=== PATIENT | female | born 1935 | race Caucasian/White ===

== ENCOUNTER 2021-03-21 14:34 | Inpatient (IN) | payer MEDICARE, OTHER ==
[2021-03-21 15:40] LABS: #Eosinphils 0.1 thou/uL (0.0-0.7); #Lymphocytes 1.6 thou/uL (1.20-3.40); #Monocytes 0.6 thou/uL (0.11-0.59); #Neutrophils 4.7 thou/uL (1.40-6.50); %Basophils 0.2 % (0.0-1.0); %Lymphocytes 23.1 % (21.0-51.0); %Monocytes 8.5 % (0.0-10.0); %Neutrophils 67.2 % (42.0-75.0); Mean Corpuscular Hemoglobin 30.3 pg (27.0-31.0); Mean Corpuscular Volume 94.7 fL (78.0-98.0); Mean Platelet Volume 7.6 fL (7.4-10.4); Platelet Count 291 thou/uL (130-400); RBC Distribution Width 14.8 % (11.5-14.5); Red Blood Cell (RBC) Count 3.95 mill/uL (4.20-5.40); White Blood Cell (WBC) Count 6.9 thou/uL (4.8-10.8)
[2021-03-21 15:59] LABS: ALT (SGPT) 13 U/L (8-55); AST (SGOT) 15 U/L (5-34); Albumin 3.4 g/dL (3.4-4.8); Alkaline Phosphatase 191 U/L (40-110); Anion Gap 17 mmol/L (10-20); BUN (Urea Nitrogen) 17 mg/dL (9.8-20.1); Bilirubin, Total 1.1 mg/dL (0.2-1.2); Calc. Creatinine Clearance 0 mL/min (70-130); Calcium 10.3 mg/dL (7.8-10.44); Carbon Dioxide 28 mmol/L (23-31); Chloride 95 mmol/L (98-107); Glucose 116 mg/dL (83-110); Potassium 3.6 mmol/L (3.5-5.1); Protein, Total 7.4 g/dL (5.8-8.1); Sodium 136 mmol/L (136-145)
[2021-03-21] MEDS ORDERED: Vancomycin 1 GM in Premix Bag 1 BAG IVPB SCH ×2 (17:00→23:00)
[2021-03-21] MEDS ORDERED: Vancomycin 1 GM/200 ML BAG ONE (17:26)
[2021-03-21] MEDS ORDERED: Acetaminophen 325 MG TAB PO PRN (21:58)
[2021-03-21] MEDS ORDERED: Ondansetron PF 4 MG/2 ML Vial IVP PRN (21:58)
[2021-03-21] MEDS ORDERED: Melatonin 3 MG TAB PO PRN (22:02)
[2021-03-21] MEDS ORDERED: Amlodipine 10 MG TAB PO SCH (22:15)
[2021-03-21] MEDS ORDERED: Furosemide 100 MG/10 ML VIAL SLOW IVP SCH (22:15)
[2021-03-21 22:30] VITALS: BMI 28.7
[2021-03-21] MEDS ORDERED: Vancomycin HCl 500 MG in Sodium Chloride 0.9% 100 ML IVPB SCH (23:00)
[2021-03-21] MEDS ORDERED: HOLD VANCOMYCIN FOR LEVEL >20 FS SCH (23:00)
[2021-03-21] MEDS ORDERED: Vancomycin HCl 1.25 GM in Sodium Chloride 0.9% 250 ML 250 ML IVPB SCH (23:00)
[2021-03-21] MEDS ORDERED: Vancomycin HCl 750 MG in Sodium Chloride 0.9% 250 ML 250 ML IVPB SCH (23:00)
[2021-03-21] MEDS: HYDROcodone/Acetaminophen 5/325 mg Tablet PO PRN (23:17)
[2021-03-22 06:20] LABS: Mean Corpuscular HGB CONC 32.1 g/dL (32.0-36.0); Mean Corpuscular Hemoglobin 30.4 pg (27.0-31.0); Mean Corpuscular Volume 94.7 fL (78.0-98.0); Mean Platelet Volume 7.5 fL (7.4-10.4); Platelet Count 271 thou/uL (130-400); RBC Distribution Width 14.8 % (11.5-14.5); White Blood Cell (WBC) Count 6.2 thou/uL (4.8-10.8)
[2021-03-22] MEDS: Levothyroxine Sodium 25 MCG TAB PO SCH (06:31)
[2021-03-22 06:32] LABS: Albumin 2.9 g/dL (3.4-4.8); Anion Gap 15 mmol/L (10-20); BUN (Urea Nitrogen) 22 mg/dL (9.8-20.1); BUN/Creatinine Ratio 4.61; Calc. Creatinine Clearance 11 mL/min (70-130); Calcium 9.3 mg/dL (7.8-10.44); Carbon Dioxide 28 mmol/L (23-31); Chloride 96 mmol/L (98-107); Glucose 98 mg/dL (83-110); Phosphorus 3.7 mg/dL (2.3-4.7); Potassium 3.7 mmol/L (3.5-5.1); Sodium 135 mmol/L (136-145)
[2021-03-22 06:44] LABS: Eosinophils 1 % (0-10); Lymphocytes 23 % (21-51); MDiff Complete? YES; Monocytes 9 % (0-10); Neutrophil 67 % (42-75)
[2021-03-22] MEDS ORDERED: Heparin 5,000 UNITS/ML VIAL SC SCH (09:00)
[2021-03-22] MEDS ORDERED: Levothyroxine Sodium 25 MCG TAB PO SCH (09:00)
[2021-03-22] MEDS: Apixaban 2.5 MG TAB PO SCH ×2 (09:13→20:45)
[2021-03-22] MEDS: Metoprolol Tartrate 25 MG TAB PO SCH ×2 (09:13→20:50)
[2021-03-22] MEDS: Amlodipine 10 MG TAB PO SCH (09:14)
[2021-03-22 12:11] LABS: SARS-CoV-2 PCR by NAA Not Detected (NotDetected)
[2021-03-22] MEDS ORDERED: Lidocaine 1% w/Epinephrine 1:100K 20 ML VIAL FS PRN (12:11)
[2021-03-22] MEDS: HYDROcodone/Acetaminophen 5/325 mg Tablet PO PRN ×2 (12:33→20:45)
[2021-03-22] MEDS ORDERED: Lidocaine-Prilocaine 2.5% Cream 5 GM TUBE TOP SCH (13:00)
[2021-03-23] MEDS: HYDROcodone/Acetaminophen 5/325 mg Tablet PO PRN ×2 (01:38→12:04)
[2021-03-23 05:36] VITALS: TEMP 97.7
[2021-03-23] MEDS: Levothyroxine Sodium 25 MCG TAB PO SCH (05:55)
[2021-03-23 08:16] VITALS: BP 157/79
[2021-03-23 09:29] LABS: Vancomycin, Random 8.8 ug/mL (See Comment)
[2021-03-23] MEDS: Metoprolol Tartrate 25 MG TAB PO SCH (09:30)
[2021-03-23] MEDS: Apixaban 2.5 MG TAB PO SCH (09:30)
[2021-03-23] MEDS: Amlodipine 10 MG TAB PO SCH (09:30)
== END 2021-03-23 14:18 | disposition home or self-care (01) | DRG 602 ==
LOC: ERS 14:34 → T4-B 17:53
PROVIDERS: ADMIT Internal Medicine; ATTEND Internal Medicine
PROC: 0J9M0ZZ Drainage of Left Upper Leg Subcutaneous Tissue and Fascia, Open Approach (ICD-10-PCS; principal; 2021-03-22)
PROC: 5A1D70Z Performance of Urinary Filtration, Intermittent, Less than 6 Hours Per Day (ICD-10-PCS; 2021-03-22)
DX: L02.416 Cutaneous abscess of left lower limb (principal); Z20.822 Contact with and (suspected) exposure to COVID-19; N18.6 End stage renal disease; I12.0 Hypertensive chronic kidney disease with stage 5 chronic kidney disease or end stage renal disease; J96.11 Chronic respiratory failure with hypoxia; R44.3 Hallucinations, unspecified; L03.116 Cellulitis of left lower limb; I16.0 Hypertensive urgency; E87.70 Fluid overload, unspecified; F51.04 Psychophysiologic insomnia; D63.1 Anemia in chronic kidney disease; I48.0 Paroxysmal atrial fibrillation; T40.425A Adverse effect of tramadol, initial encounter; T42.4X5A Adverse effect of benzodiazepines, initial encounter; E03.9 Hypothyroidism, unspecified; Z99.2 Dependence on renal dialysis; Z87.440 Personal history of urinary (tract) infections; Z88.0 Allergy status to penicillin; Z88.8 Allergy status to other drugs, medicaments and biological substances; Z99.81 Dependence on supplemental oxygen; Z87.01 Personal history of pneumonia (recurrent); Z86.16 Personal history of COVID-19
CPT/HCPCS: 36415; 80053; 80069; 80202; 83605; 85007; 85025; 85027; 87040; 87070; 87077; 87086; 87186; 87205; 96365; 96366; J1940; J3370; U0003; U0005

== ENCOUNTER 2021-04-03 13:25 | Emergency (ER) | payer MEDICARE, OTHER ==
[2021-04-03 17:40] LABS: #Eosinphils 0.1 thou/uL (0.0-0.7); #Lymphocytes 1.6 thou/uL (1.20-3.40); #Monocytes 0.5 thou/uL (0.11-0.59); #Neutrophils 4.2 thou/uL (1.40-6.50); %Basophils 0.7 % (0.0-1.0); %Eosinophils 1.1 % (0.0-10.0); %Lymphocytes 24.9 % (21.0-51.0); %Monocytes 7.9 % (0.0-10.0); %Neutrophils 65.5 % (42.0-75.0); Hemoglobin 11.8 g/dL (12.0-16.0); Mean Corpuscular HGB CONC 32.2 g/dL (32.0-36.0); Mean Corpuscular Hemoglobin 30.6 pg (27.0-31.0); Mean Corpuscular Volume 95.1 fL (78.0-98.0); Mean Platelet Volume 7.7 fL (7.4-10.4); Platelet Count 227 thou/uL (130-400); RBC Distribution Width 14.2 % (11.5-14.5); Red Blood Cell (RBC) Count 3.85 mill/uL (4.20-5.40); White Blood Cell (WBC) Count 6.4 thou/uL (4.8-10.8)
[2021-04-03 18:09] LABS: ALT (SGPT) 11 U/L (8-55); AST (SGOT) 17 U/L (5-34); Albumin 3.2 g/dL (3.4-4.8); Alkaline Phosphatase 184 U/L (40-110); Anion Gap 18 mmol/L (10-20); BUN (Urea Nitrogen) 33 mg/dL (9.8-20.1); Bilirubin, Total 0.7 mg/dL (0.2-1.2); Calc. Creatinine Clearance 0 mL/min (70-130); Calcium 9.3 mg/dL (7.8-10.44); Carbon Dioxide 23 mmol/L (23-31); Chloride 96 mmol/L (98-107); Globulin 3.7 g/dL (2.4-3.5); Glucose 147 mg/dL (83-110); Potassium 4.8 mmol/L (3.5-5.1); Protein, Total 6.9 g/dL (5.8-8.1); Sodium 132 mmol/L (136-145)
[2021-04-03] MEDS ORDERED: HYDROcodone/Acetaminophen 5/325 mg Tablet ONE (19:54)
== END 2021-04-03 22:58 ==
LOC: ERS 13:25
DX: I13.0 Hypertensive heart and chronic kidney disease with heart failure and stage 1 through stage 4 chronic kidney disease, or unspecified chronic kidney disease (principal); N18.9 Chronic kidney disease, unspecified; R22.42 Localized swelling, mass and lump, left lower limb; I50.9 Heart failure, unspecified; E78.00 Pure hypercholesterolemia, unspecified; E78.5 Hyperlipidemia, unspecified; Z86.16 Personal history of COVID-19; Z79.01 Long term (current) use of anticoagulants; Z79.899 Other long term (current) drug therapy
CPT/HCPCS: 71045; 80053; 85025; 93005

== ENCOUNTER 2021-04-12 17:59 | Emergency (ER) | payer MEDICARE ==
[2021-04-12] MEDS ORDERED: SUMAtriptan Succinate 6 MG/0.5 ML VIAL ONE (18:48)
[2021-04-12] MEDS ORDERED: Tranexamic Acid 1,000 MG/10 ML VIAL ONE (18:48)
[2021-04-12] MEDS ORDERED: Lidocaine 4% Topical Sol 50 ML BOT ONE (19:27)
[2021-04-12] MEDS ORDERED: Lidocaine 2% PF 5 ML VIAL ONE (19:28)
[2021-04-12] MEDS ORDERED: Lidocaine 1% PF 5 ML VIAL ONE (19:29)
[2021-04-12] MEDS ORDERED: Xylocaine 1% w/ Epi 1:100K 10 ML VIAL IM SCH (19:30)
[2021-04-12] MEDS ORDERED: HYDROcodone/Acetaminophen 5/325 mg Tablet ONE (21:29)
== END 2021-04-12 21:43 | disposition home or self-care (01) ==
LOC: ERS 17:59
DX: T82.898A Other specified complication of vascular prosthetic devices, implants and grafts, initial encounter (principal); I11.0 Hypertensive heart disease with heart failure; I50.9 Heart failure, unspecified; E78.5 Hyperlipidemia, unspecified; E78.00 Pure hypercholesterolemia, unspecified; Z79.01 Long term (current) use of anticoagulants; Z79.899 Other long term (current) drug therapy
CPT/HCPCS: 99284; J2001; J3030

== ENCOUNTER 2021-09-01 10:35 | Inpatient (IN) | payer MEDICARE, OTHER ==
[2021-09-01 11:27] LABS: #Eosinphils 0.1 thou/uL (0.0-0.7); #Lymphocytes 1.4 thou/uL (1.20-3.40); #Monocytes 0.6 thou/uL (0.11-0.59); #Neutrophils 5.8 thou/uL (1.40-6.50); %Basophils 0.4 % (0.0-1.0); %Eosinophils 1.4 % (0.0-10.0); %Lymphocytes 17.6 % (21.0-51.0); %Monocytes 7.1 % (0.0-10.0); %Neutrophils 73.6 % (42.0-75.0); Hemoglobin 9.6 g/dL (12.0-16.0); Mean Corpuscular HGB CONC 31.6 g/dL (32.0-36.0); Mean Corpuscular Hemoglobin 29.5 pg (27.0-31.0); Mean Corpuscular Volume 93.5 fL (78.0-98.0); Mean Platelet Volume 7.5 fL (7.4-10.4); Platelet Count 302 thou/uL (130-400); RBC Distribution Width 16.5 % (11.5-14.5); Red Blood Cell (RBC) Count 3.24 mill/uL (4.20-5.40); White Blood Cell (WBC) Count 7.8 thou/uL (4.8-10.8)
[2021-09-01 11:51] LABS: ALT (SGPT) Less than 7 U/L (8-55); AST (SGOT) 11 U/L (5-34); Albumin 2.9 g/dL (3.4-4.8); Alkaline Phosphatase 226 U/L (40-110); Anion Gap 18 mmol/L (10-20); BUN (Urea Nitrogen) 41 mg/dL (9.8-20.1); Bilirubin, Total 1.1 mg/dL (0.2-1.2); Calc. Creatinine Clearance 0 mL/min (70-130); Calcium 8.8 mg/dL (7.8-10.44); Carbon Dioxide 25 mmol/L (23-31); Chloride 92 mmol/L (98-107); Globulin 3.7 g/dL (2.4-3.5); Glucose 109 mg/dL (83-110); Potassium 5.4 mmol/L (3.5-5.1); Protein, Total 6.6 g/dL (5.8-8.1); Sodium 130 mmol/L (136-145)
[2021-09-01] MEDS ORDERED: traMADol HCl 50 MG TAB ONE (13:18)
[2021-09-01 15:21] LABS: SARS-CoV-2 NAA Rapid Test Not Detected (NotDetected)
[2021-09-01] MEDS ORDERED: Ondansetron ODT 4 MG TAB PO PRN (15:30)
[2021-09-01] MEDS ORDERED: Senokot S 8.6-50 MG TAB PO PRN (15:30)
[2021-09-01] MEDS ORDERED: Bisacodyl 5 MG TAB PO PRN (15:30)
[2021-09-01] MEDS ORDERED: Acetaminophen 325 MG TAB PO PRN (15:30)
[2021-09-01] MEDS ORDERED: Ondansetron PF 4 MG/2 ML Vial IVP PRN (15:30)
[2021-09-01] MEDS ORDERED: Calcium Carbonate 500 MG ChewTAB PO PRN (15:30)
[2021-09-01] MEDS ORDERED: Bisacodyl 10 MG SUPP PR PRN (15:30)
[2021-09-01] MEDS ORDERED: hydrALAZINE 25 MG TAB PO PRN (18:13)
[2021-09-01 18:21] VITALS: BMI 27.8
[2021-09-01] MEDS ORDERED: ceFAZolin (BATCH) 2 GM in Premix Bag 1 BAG IVPB SCH (18:45)
[2021-09-01 19:43] LABS: Hemoglobin A1c 4.9 % (4.0-6.0)
[2021-09-01] MEDS: guaiFENesin ER 600 MG TAB PO SCH (20:59)
[2021-09-02] MEDS: HYDROcodone/Acetaminophen 5/325 mg Tablet PO PRN (03:30)
[2021-09-02] MEDS: hydrOXYzine 25 MG TAB PO PRN (03:52)
[2021-09-02 05:14] LABS: #Eosinphils 0.2 thou/uL (0.0-0.7); #Lymphocytes 1.3 thou/uL (1.20-3.40); #Monocytes 0.7 thou/uL (0.11-0.59); #Neutrophils 5.4 thou/uL (1.40-6.50); %Basophils 0.4 % (0.0-1.0); %Eosinophils 2.4 % (0.0-10.0); %Lymphocytes 17.3 % (21.0-51.0); %Monocytes 8.6 % (0.0-10.0); %Neutrophils 71.4 % (42.0-75.0); Hemoglobin 8.5 g/dL (12.0-16.0); Mean Corpuscular HGB CONC 32.5 g/dL (32.0-36.0); Mean Corpuscular Hemoglobin 30.3 pg (27.0-31.0); Mean Corpuscular Volume 93.3 fL (78.0-98.0); Mean Platelet Volume 7.7 fL (7.4-10.4); Platelet Count 313 thou/uL (130-400); RBC Distribution Width 16.5 % (11.5-14.5); Red Blood Cell (RBC) Count 2.79 mill/uL (4.20-5.40); White Blood Cell (WBC) Count 7.6 thou/uL (4.8-10.8)
[2021-09-02 05:19] LABS: INR-International Normal Ratio 1.2
[2021-09-02 05:20] LABS: PTT 47.2 sec (22.9-36.1)
[2021-09-02 05:39] LABS: ALT (SGPT) Less than 7 U/L (8-55); AST (SGOT) 9 U/L (5-34); Albumin 2.5 g/dL (3.4-4.8); Alkaline Phosphatase 189 U/L (40-110); Anion Gap 18 mmol/L (10-20); BUN (Urea Nitrogen) 48 mg/dL (9.8-20.1); Bilirubin, Direct 0.6 mg/dL (0.1-0.3); Calc. Creatinine Clearance 7 mL/min (70-130); Calcium 8.2 mg/dL (7.8-10.44); Carbon Dioxide 26 mmol/L (23-31); Cardiac Risk 2.3 (Less than 4.5); Chloride 92 mmol/L (98-107); Cholesterol 104 mg/dl (< 200 Desired); Glucose 86 mg/dL (83-110); HDL Cholesterol 46 mg/dL (>60 Neg Risk); LDL Cholesterol, Calculated 44 mg/dL; Protein, Total 5.8 g/dL (5.8-8.1); Sodium 131 mmol/L (136-145); Triglycerides 70 mg/dL (Less than 150)
[2021-09-02] MEDS ORDERED: traZODone HCl 50 MG TAB PO PRN (08:15)
[2021-09-02] MEDS ORDERED: Metoprolol Tartrate 25 MG TAB PO SCH (08:15)
[2021-09-02] MEDS ORDERED: ALPRAZolam 0.25 MG TAB PO PRN ×2 (08:15→08:20)
[2021-09-02] MEDS ORDERED: Heparin 10,000 UNITS/ 10 ML VIAL ONE ×2 (08:50→13:33)
[2021-09-02] MEDS ORDERED: Apixaban 2.5 MG TAB PO SCH (09:00)
[2021-09-02] MEDS ORDERED: Calcitonin,Synthetic 200 UNITS/ML MDV SC SCH ×2 (09:00)
[2021-09-02] MEDS ORDERED: Non-Formulary Item 1 EACH (Ferrous Sulfate [Ferrous Sulfate] 325 MG Tab) PO SCH (09:00)
[2021-09-02] MEDS ORDERED: Iopamidol 300 61% 100 ML VIAL FS ONE (09:11)
[2021-09-02] MEDS ORDERED: Calcitonin,Salmon,Synthetic 200 Units 3.7 ML PUMP EA NARE SCH (10:00)
[2021-09-02] MEDS: Amlodipine 5 MG TAB PO SCH (10:07)
[2021-09-02] MEDS: guaiFENesin ER 600 MG TAB PO SCH ×2 (10:07→22:11)
[2021-09-02] MEDS: Ferrous Sulfate 325 MG TAB PO SCH ×2 (10:07→22:10)
[2021-09-02] MEDS: Amiodarone 200 MG TAB PO SCH (10:07)
[2021-09-02] MEDS ORDERED: Lidocaine 1% w/Epinephrine 1:100K 20 ML VIAL ONE (13:33)
[2021-09-02] MEDS ORDERED: Bupivacaine PF 0.5% 30 ML VIAL ONE (13:33)
[2021-09-02] MEDS ORDERED: Propofol 500 MG/50 ML VIAL ONE ×2 (13:36→13:37)
[2021-09-02] MEDS ORDERED: ceFAZolin (BATCH) 2 GM in Premix Bag 1 BAG IVPB SCH (13:45)
[2021-09-02] MEDS ORDERED: ceFAZolin (BATCH) 2 GM/100 ML BAG ONE (13:47)
[2021-09-02] MEDS ORDERED: PROPOFOL 200 MG/20 ML VIAL ONE (13:57)
[2021-09-02] MEDS ORDERED: ePHEDrine 50 MG/ML VIAL ONE (13:57)
[2021-09-02] MEDS ORDERED: Ondansetron PF 4 MG/2 ML Vial ONE (13:57)
[2021-09-02] MEDS ORDERED: Lidocaine 1% PF 5 ML VIAL ONE (13:57)
[2021-09-02] MEDS ORDERED: Fentanyl 100 MCG/2 ML VIAL ONE ×2 (15:04→15:43)
[2021-09-02] MEDS: Sevelamer Carbonate 800 MG TAB PO SCH ×2 (15:15→18:28)
[2021-09-02] MEDS ORDERED: Non-Formulary Item 1 EACH (Escitalopram Oxalate [Lexapro] 5 MG Tablet) PO SCH (21:00)
[2021-09-02] MEDS: Escitalopram Oxalate 10 mg Tablet PO SCH (22:10)
[2021-09-02] MEDS: Atorvastatin Calcium 20 MG TAB PO SCH (22:10)
[2021-09-03] MEDS: HYDROcodone/Acetaminophen 5/325 mg Tablet PO PRN ×3 (00:39→22:24)
[2021-09-03] MEDS: traMADol HCl 50 MG TAB PO PRN (01:43)
[2021-09-03] MEDS: hydrOXYzine 25 MG TAB PO PRN (01:43)
[2021-09-03 04:55] LABS: #Basophils 0.1 thou/uL (0.0-0.2); #Eosinphils 0.1 thou/uL (0.0-0.7); #Lymphocytes 1.1 thou/uL (1.20-3.40); #Monocytes 0.6 thou/uL (0.11-0.59); #Neutrophils 4.4 thou/uL (1.40-6.50); %Basophils 0.9 % (0.0-1.0); %Eosinophils 2.3 % (0.0-10.0); %Lymphocytes 16.9 % (21.0-51.0); %Monocytes 9.6 % (0.0-10.0); %Neutrophils 70.3 % (42.0-75.0); Hemoglobin 7.6 g/dL (12.0-16.0); Mean Corpuscular HGB CONC 31.4 g/dL (32.0-36.0); Mean Corpuscular Hemoglobin 29.5 pg (27.0-31.0); Mean Corpuscular Volume 93.9 fL (78.0-98.0); Mean Platelet Volume 7.4 fL (7.4-10.4); Platelet Count 278 thou/uL (130-400); RBC Distribution Width 16.3 % (11.5-14.5); Red Blood Cell (RBC) Count 2.58 mill/uL (4.20-5.40); White Blood Cell (WBC) Count 6.3 thou/uL (4.8-10.8)
[2021-09-03 05:17] LABS: Anion Gap 17 mmol/L (10-20); BUN (Urea Nitrogen) 25 mg/dL (9.8-20.1); Calc. Creatinine Clearance 10 mL/min (70-130); Calcium 7.7 mg/dL (7.8-10.44); Carbon Dioxide 26 mmol/L (23-31); Chloride 98 mmol/L (98-107); Potassium 4.6 mmol/L (3.5-5.1); Sodium 136 mmol/L (136-145)
[2021-09-03 05:25] LABS: Glucose 49 mg/dL (83-110)
[2021-09-03] MEDS ORDERED: Dextrose 50% Abboject 50 ML SYRINGE SLOW IVP PRN (05:37)
[2021-09-03] MEDS ORDERED: Dextrose 5% in Water 1,000 ML IV PRN (05:37)
[2021-09-03] MEDS: Levothyroxine Sodium 25 MCG TAB PO SCH (06:46)
[2021-09-03] MEDS: Metoprolol Tartrate 25 MG TAB PO SCH ×2 (10:39→22:25)
[2021-09-03] MEDS: Ferrous Sulfate 325 MG TAB PO SCH ×2 (10:39→22:26)
[2021-09-03] MEDS: Calcitonin,Salmon,Synthetic 200 Units 3.7 ML PUMP EA NARE SCH (10:39)
[2021-09-03] MEDS: Amiodarone 200 MG TAB PO SCH (10:39)
[2021-09-03] MEDS: guaiFENesin ER 600 MG TAB PO SCH ×2 (10:39→22:25)
[2021-09-03] MEDS: Amlodipine 5 MG TAB PO SCH (10:39)
[2021-09-03] MEDS: Sevelamer Carbonate 800 MG TAB PO SCH ×3 (10:42→18:07)
[2021-09-03] MEDS ORDERED: Heparin 5,000 UNITS/ML VIAL ONE (10:59)
[2021-09-03] MEDS ORDERED: Lidocaine 1% w/Epinephrine 1:100K 20 ML VIAL ONE (10:59)
[2021-09-03] MEDS ORDERED: Protamine Sulfate 50 MG/5 ML VIAL ONE (10:59)
[2021-09-03] MEDS ORDERED: Bupivacaine PF 0.5% 30 ML VIAL ONE (10:59)
[2021-09-03] MEDS ORDERED: ceFAZolin (BATCH) 2 GM/100 ML BAG ONE (11:49)
[2021-09-03] MEDS ORDERED: fentaNYL Citrate/PF 100 MCG/2 ML SYRINGE ONE (12:08)
[2021-09-03] MEDS ORDERED: Lidocaine 1% PF 5 ML VIAL ONE (12:12)
[2021-09-03] MEDS ORDERED: PROPOFOL 200 MG/20 ML VIAL ONE (12:12)
[2021-09-03] MEDS ORDERED: ePHEDrine 50 MG/ML VIAL ONE (12:12)
[2021-09-03] MEDS ORDERED: PHENYLEPHRINE-NS 100 MCG/ML 10 ML SYRINGE ONE (12:12)
[2021-09-03] MEDS ORDERED: Fentanyl 100 MCG/2 ML VIAL ONE ×2 (13:36→14:01)
[2021-09-03] MEDS ORDERED: Promethazine HCl 25 MG/ML VIAL IM PRN (13:40)
[2021-09-03] MEDS ORDERED: Promethazine HCl 25 MG/ML VIAL IVPB PRN (13:40)
[2021-09-03] MEDS ORDERED: Ondansetron HCl/PF 4 MG/2 ML Vial IVP PRN (13:40)
[2021-09-03] MEDS: Escitalopram Oxalate 10 mg Tablet PO SCH (22:25)
[2021-09-03] MEDS: Atorvastatin Calcium 20 MG TAB PO SCH (22:26)
[2021-09-04] MEDS: hydrOXYzine 25 MG TAB PO PRN ×2 (01:08→22:46)
[2021-09-04] MEDS: traMADol HCl 50 MG TAB PO PRN (01:08)
[2021-09-04 04:41] LABS: #Eosinphils 0.2 thou/uL (0.0-0.7); #Lymphocytes 1.4 thou/uL (1.20-3.40); #Monocytes 0.7 thou/uL (0.11-0.59); %Basophils 0.5 % (0.0-1.0); %Eosinophils 3.7 % (0.0-10.0); %Monocytes 11.5 % (0.0-10.0); %Neutrophils 62.4 % (42.0-75.0); Hemoglobin 6.2 g/dL (12.0-16.0); Mean Corpuscular HGB CONC 30.5 g/dL (32.0-36.0); Mean Platelet Volume 7.1 fL (7.4-10.4); Platelet Count 270 thou/uL (130-400); Red Blood Cell (RBC) Count 2.15 mill/uL (4.20-5.40); White Blood Cell (WBC) Count 6.4 thou/uL (4.8-10.8)
[2021-09-04 04:57] LABS: Anion Gap 17 mmol/L (10-20); BUN (Urea Nitrogen) 32 mg/dL (9.8-20.1); Calc. Creatinine Clearance 9 mL/min (70-130); Calcium 7.5 mg/dL (7.8-10.44); Carbon Dioxide 24 mmol/L (23-31); Chloride 95 mmol/L (98-107); Glucose 99 mg/dL (83-110); Potassium 4.6 mmol/L (3.5-5.1); Sodium 131 mmol/L (136-145)
[2021-09-04] MEDS: Levothyroxine Sodium 25 MCG TAB PO SCH (06:16)
[2021-09-04] MEDS ORDERED: Heparin 10,000 UNITS/ 10 ML VIAL ONE (08:49)
[2021-09-04] MEDS: Sevelamer Carbonate 800 MG TAB PO SCH ×3 (09:57→16:57)
[2021-09-04] MEDS: Amlodipine 5 MG TAB PO SCH (09:57)
[2021-09-04] MEDS: Ferrous Sulfate 325 MG TAB PO SCH ×2 (09:58→19:58)
[2021-09-04] MEDS: guaiFENesin ER 600 MG TAB PO SCH ×2 (09:58→20:00)
[2021-09-04] MEDS: Amiodarone 200 MG TAB PO SCH (09:58)
[2021-09-04] MEDS: Calcitonin,Salmon,Synthetic 200 Units 3.7 ML PUMP EA NARE SCH (09:58)
[2021-09-04] MEDS: HYDROcodone/Acetaminophen 5/325 mg Tablet PO PRN ×2 (15:26→19:58)
[2021-09-04 15:41] LABS: Hemoglobin 9.5 g/dL (12.0-16.0)
[2021-09-04] MEDS: Atorvastatin Calcium 20 MG TAB PO SCH (19:59)
[2021-09-04] MEDS: Escitalopram Oxalate 10 mg Tablet PO SCH (20:00)
[2021-09-05] MEDS: Levothyroxine Sodium 25 MCG TAB PO SCH (06:00)
[2021-09-05 06:32] LABS: #Basophils 0.1 thou/uL (0.0-0.2); #Eosinphils 0.2 thou/uL (0.0-0.7); #Lymphocytes 1.3 thou/uL (1.20-3.40); #Monocytes 0.7 thou/uL (0.11-0.59); #Neutrophils 3.7 thou/uL (1.40-6.50); %Basophils 0.9 % (0.0-1.0); %Eosinophils 3.5 % (0.0-10.0); %Lymphocytes 22.4 % (21.0-51.0); %Monocytes 11.8 % (0.0-10.0); %Neutrophils 61.3 % (42.0-75.0); Hemoglobin 9.5 g/dL (12.0-16.0); Mean Corpuscular HGB CONC 31.2 g/dL (32.0-36.0); Mean Corpuscular Hemoglobin 28.8 pg (27.0-31.0); Mean Corpuscular Volume 92.3 fL (78.0-98.0); Mean Platelet Volume 7.4 fL (7.4-10.4); Platelet Count 224 thou/uL (130-400); RBC Distribution Width 16.8 % (11.5-14.5)
[2021-09-05 06:37] LABS: Bacteria/HPF 4+ HPF (None Seen); Bilirubin Negative (Negative); Blood, Urine 1+ (Negative); Clarity Extra Turbid (Clear); Glucose, Urine (Dipstick) Normal (Negative); Ketone, Urine Negative (Negative); Leukocyte 500 Leu/uL (Negative); Nitrite Negative (Negative); Protein, Urine (Dipstick) 200 mg/dL (Neg-Trace); Specific Gravity, Urine 1.014 (1.002-1.036); Urobilinogen Normal mg/dL (Less than 2); WBC/HPF Greater than 50 HPF (0-3); pH, Urine 7.5 (5.0-9.0)
[2021-09-05 06:39] LABS: Urine Culture Reflex No No
[2021-09-05 06:49] LABS: Anion Gap 14 mmol/L (10-20); BUN (Urea Nitrogen) 16 mg/dL (9.8-20.1); Calc. Creatinine Clearance 15 mL/min (70-130); Calcium 7.9 mg/dL (7.8-10.44); Carbon Dioxide 29 mmol/L (23-31); Chloride 98 mmol/L (98-107); Glucose 79 mg/dL (83-110); Potassium 3.7 mmol/L (3.5-5.1); Sodium 137 mmol/L (136-145)
[2021-09-05] MEDS: Amlodipine 5 MG TAB PO SCH (10:04)
[2021-09-05] MEDS: guaiFENesin ER 600 MG TAB PO SCH (10:05)
[2021-09-05] MEDS: Sevelamer Carbonate 800 MG TAB PO SCH ×3 (10:05→16:00)
[2021-09-05] MEDS: Metoprolol Tartrate 25 MG TAB PO SCH (10:05)
[2021-09-05] MEDS: Ferrous Sulfate 325 MG TAB PO SCH (10:05)
[2021-09-05] MEDS: Amiodarone 200 MG TAB PO SCH (10:05)
[2021-09-05] MEDS: HYDROcodone/Acetaminophen 5/325 mg Tablet PO PRN (16:00)
[2021-09-05 18:08] VITALS: BP 143/70; TEMP 98
[2021-09-05] MEDS ORDERED: Apixaban 2.5 MG TAB PO SCH (21:00)
== END 2021-09-05 18:10 | DRG 264 ==
LOC: ERS 10:35 → 2NO 15:33
PROVIDERS: ADMIT Emergency Medicine; ATTEND Emergency Medicine
PROC: 0JHL3XZ Insertion of Tunneled Vascular Access Device into Right Upper Leg Subcutaneous Tissue and Fascia, Percutaneous Approach (ICD-10-PCS; 2021-09-02)
PROC: 06HN33Z Insertion of Infusion Device into Left Femoral Vein, Percutaneous Approach (ICD-10-PCS; 2021-09-02)
PROC: 5A1D70Z Performance of Urinary Filtration, Intermittent, Less than 6 Hours Per Day (ICD-10-PCS; 2021-09-02)
PROC: 031B0ZF Bypass Right Radial Artery to Lower Arm Vein, Open Approach (ICD-10-PCS; principal; 2021-09-03)
DX: T82.590A Other mechanical complication of surgically created arteriovenous fistula, initial encounter (principal); N18.6 End stage renal disease; J96.01 Acute respiratory failure with hypoxia; G93.41 Metabolic encephalopathy; I13.2 Hypertensive heart and chronic kidney disease with heart failure and with stage 5 chronic kidney disease, or end stage renal disease; I82.622 Acute embolism and thrombosis of deep veins of left upper extremity; Z66 Do not resuscitate; Z20.822 Contact with and (suspected) exposure to COVID-19; E66.9 Obesity, unspecified; E78.5 Hyperlipidemia, unspecified; F41.9 Anxiety disorder, unspecified; F32.A Depression, unspecified; E87.5 Hyperkalemia; I48.0 Paroxysmal atrial fibrillation; D63.1 Anemia in chronic kidney disease; G89.4 Chronic pain syndrome; E03.9 Hypothyroidism, unspecified; T82.838A Hemorrhage due to vascular prosthetic devices, implants and grafts, initial encounter; Y83.8 Other surgical procedures as the cause of abnormal reaction of the patient, or of later complication, without mention of misadventure at the time of the procedure; E88.09 Other disorders of plasma-protein metabolism, not elsewhere classified; Z90.49 Acquired absence of other specified parts of digestive tract; Z28.311 Partially vaccinated for COVID-19; Z99.81 Dependence on supplemental oxygen; Z99.2 Dependence on renal dialysis; Z87.891 Personal history of nicotine dependence; Z88.0 Allergy status to penicillin; Z88.8 Allergy status to other drugs, medicaments and biological substances; Z79.899 Other long term (current) drug therapy; Z79.01 Long term (current) use of anticoagulants; Z90.710 Acquired absence of both cervix and uterus; Z95.5 Presence of coronary angioplasty implant and graft; Z82.49 Family history of ischemic heart disease and other diseases of the circulatory system; E16.2 Hypoglycemia, unspecified; Z68.27 Body mass index [BMI] 27.0-27.9, adult
CPT/HCPCS: 36005; 36415; 36416; 36430; 36901; 71045; 75820; 76937; 80048; 80061; 80076; 81001; 83036; 83880; 84443; 84484; 85025; 85610; 85730; 86850; 86900; 86901; 90935; 93005; 93970; C1751; C1752; C1776; G0257; J0690; J1644; J2405; J2704; J2720; J3010; J3490; P9016; Q9967; S0020; U0002

== ENCOUNTER 2021-09-14 21:50 | Emergency (ER) | payer MEDICARE, OTHER ==
[~2021-09-14 21:50] MED LIST: Iopamidol-370 76% 500 ML 1 ML ONE
[2021-09-14] MEDS ORDERED: Morphine 4 MG/ML VIAL ONE (22:14)
[2021-09-14 22:41] LABS: #Basophils 0.1 thou/uL (0.0-0.2); #Eosinphils 0.3 thou/uL (0.0-0.7); #Lymphocytes 1.9 thou/uL (1.20-3.40); #Monocytes 0.9 thou/uL (0.11-0.59); #Neutrophils 6.4 thou/uL (1.40-6.50); %Basophils 0.7 % (0.0-1.0); %Lymphocytes 19.7 % (21.0-51.0); %Monocytes 9.5 % (0.0-10.0); %Neutrophils 67.1 % (42.0-75.0); Hemoglobin 10.6 g/dL (12.0-16.0); Mean Corpuscular HGB CONC 31.4 g/dL (32.0-36.0); Mean Corpuscular Hemoglobin 29.3 pg (27.0-31.0); Mean Corpuscular Volume 93.3 fL (78.0-98.0); Mean Platelet Volume 7.4 fL (7.4-10.4); Platelet Count 293 thou/uL (130-400); RBC Distribution Width 16.5 % (11.5-14.5); Red Blood Cell (RBC) Count 3.61 mill/uL (4.20-5.40); White Blood Cell (WBC) Count 9.6 thou/uL (4.8-10.8)
[2021-09-14 23:52] LABS: ALT (SGPT) Less than 7 U/L (8-55); AST (SGOT) 9 U/L (5-34); Albumin 2.2 g/dL (3.4-4.8); Alkaline Phosphatase 184 U/L (40-110); Anion Gap 13 mmol/L (10-20); BUN (Urea Nitrogen) 33 mg/dL (9.8-20.1); Bilirubin, Total 0.4 mg/dL (0.2-1.2); Calc. Creatinine Clearance 0 mL/min (70-130); Calcium 8.2 mg/dL (7.8-10.44); Carbon Dioxide 28 mmol/L (23-31); Chloride 98 mmol/L (98-107); Globulin 3.3 g/dL (2.4-3.5); Glucose 126 mg/dL (83-110); Lipase 6 U/L (8-78); Potassium 4.9 mmol/L (3.5-5.1); Protein, Total 5.5 g/dL (5.8-8.1); Sodium 134 mmol/L (136-145)
== END 2021-09-15 01:46 | disposition home or self-care (01) ==
LOC: ERS 21:50
DX: L89.152 Pressure ulcer of sacral region, stage 2 (principal); I13.2 Hypertensive heart and chronic kidney disease with heart failure and with stage 5 chronic kidney disease, or end stage renal disease; N18.6 End stage renal disease; I50.9 Heart failure, unspecified; I48.91 Unspecified atrial fibrillation; M19.90 Unspecified osteoarthritis, unspecified site; E03.9 Hypothyroidism, unspecified; E66.9 Obesity, unspecified; Z99.2 Dependence on renal dialysis; Z79.01 Long term (current) use of anticoagulants; Z79.890 Hormone replacement therapy; Z79.899 Other long term (current) drug therapy
CPT/HCPCS: 36415; 74177; 80053; 83690; 85025; 96361; 96374; J2270; Q9967

== ENCOUNTER 2021-10-27 15:31 | Emergency (ER) | payer MEDICARE, OTHER ==
[2021-10-27 16:56] LABS: #Eosinphils 0.3 thou/uL (0.0-0.7); #Lymphocytes 1.7 thou/uL (1.20-3.40); #Monocytes 0.6 thou/uL (0.11-0.59); #Neutrophils 3.7 thou/uL (1.40-6.50); %Basophils 0.5 % (0.0-1.0); %Eosinophils 4.4 % (0.0-10.0); %Lymphocytes 26.8 % (21.0-51.0); %Monocytes 10.1 % (0.0-10.0); %Neutrophils 58.2 % (42.0-75.0); Hemoglobin 11.1 g/dL (12.0-16.0); Mean Corpuscular HGB CONC 31.4 g/dL (32.0-36.0); Mean Corpuscular Hemoglobin 28.6 pg (27.0-31.0); Mean Corpuscular Volume 91.3 fL (78.0-98.0); Mean Platelet Volume 7.8 fL (7.4-10.4); Platelet Count 209 thou/uL (130-400); Red Blood Cell (RBC) Count 3.86 mill/uL (4.20-5.40); White Blood Cell (WBC) Count 6.3 thou/uL (4.8-10.8)
[2021-10-27 17:20] LABS: ALT (SGPT) Less than 7 U/L (8-55); AST (SGOT) 13 U/L (5-34); Albumin 2.2 g/dL (3.4-4.8); Alkaline Phosphatase 196 U/L (40-110); Anion Gap 16 mmol/L (10-20); BUN (Urea Nitrogen) 24 mg/dL (9.8-20.1); Bilirubin, Total 0.3 mg/dL (0.2-1.2); Calc. Creatinine Clearance 0 mL/min (70-130); Carbon Dioxide 27 mmol/L (23-31); Chloride 99 mmol/L (98-107); Estimated GFR 9; Glucose 103 mg/dL (83-110); Potassium 4.4 mmol/L (3.5-5.1); Protein, Total 5.2 g/dL (5.8-8.1); Sodium 138 mmol/L (136-145)
== END 2021-10-27 19:25 | disposition home or self-care (01) ==
LOC: ERS 15:31
DX: T82.898A Other specified complication of vascular prosthetic devices, implants and grafts, initial encounter (principal); E03.9 Hypothyroidism, unspecified; I48.91 Unspecified atrial fibrillation; E66.9 Obesity, unspecified; I13.2 Hypertensive heart and chronic kidney disease with heart failure and with stage 5 chronic kidney disease, or end stage renal disease; N18.6 End stage renal disease; I50.84 End stage heart failure; Z99.2 Dependence on renal dialysis; Z79.899 Other long term (current) drug therapy; Z79.01 Long term (current) use of anticoagulants
CPT/HCPCS: 36415; 80053; 83605; 85025

== ENCOUNTER → 2021-12-19 | Day surgery (SDC) | payer MEDICARE, OTHER ==
[~2021-12-19] MED LIST changes: +Iopamidol 300 61% 50 ML VIAL FS ONE; -Iopamidol-370 76% 500 ML 1 ML ONE; +Lidocaine 1% MPF 2 ML VIAL ONE; +Sodium Bicarbonate 2.5 MEQ/5 ML VIAL ONE
== END | disposition home or self-care (01) ==
LOC: SPEC 08:06
PROVIDERS: ATTEND Specialist
PROC: B51W1ZZ Fluoroscopy of Dialysis Shunt/Fistula using Low Osmolar Contrast (ICD-10-PCS; principal; 2021-12-19)
DX: T82.590A Other mechanical complication of surgically created arteriovenous fistula, initial encounter (principal); N18.6 End stage renal disease; Z88.0 Allergy status to penicillin; Z88.8 Allergy status to other drugs, medicaments and biological substances; Y81.3 Surgical instruments, materials and general- and plastic-surgery devices (including sutures) associated with adverse incidents
CPT/HCPCS: 36901

== ENCOUNTER 2021-12-31 11:19 | Day surgery (SDC) | payer MEDICARE, OTHER ==
[2021-12-30 10:46] VITALS: BMI 25.6
[2021-12-31 12:26] LABS: #Basophils 0.1 thou/uL (0.0-0.2); #Eosinphils 0.1 thou/uL (0.0-0.7); #Lymphocytes 1.8 thou/uL (1.20-3.40); #Monocytes 0.7 thou/uL (0.11-0.59); #Neutrophils 5.5 thou/uL (1.40-6.50); %Basophils 0.6 % (0.0-1.0); %Eosinophils 1.7 % (0.0-10.0); %Lymphocytes 21.4 % (21.0-51.0); %Neutrophils 67.3 % (42.0-75.0); Hemoglobin 10.9 g/dL (12.0-16.0); Mean Corpuscular HGB CONC 32.2 g/dL (32.0-36.0); Mean Corpuscular Hemoglobin 30.9 pg (27.0-31.0); Mean Corpuscular Volume 96.1 fL (78.0-98.0); Mean Platelet Volume 8.4 fL (7.4-10.4); Platelet Count 220 thou/uL (130-400); RBC Distribution Width 14.4 % (11.5-14.5); Red Blood Cell (RBC) Count 3.53 mill/uL (4.20-5.40); White Blood Cell (WBC) Count 8.2 thou/uL (4.8-10.8)
[2021-12-31 12:43] LABS: Anion Gap 17 mmol/L (10-20); BUN (Urea Nitrogen) 28 mg/dL (9.8-20.1); Calc. Creatinine Clearance 11 mL/min (70-130); Calcium 9.5 mg/dL (7.8-10.44); Carbon Dioxide 25 mmol/L (23-31); Chloride 99 mmol/L (98-107); Estimated GFR 10; Glucose 114 mg/dL (83-110); Potassium 4.6 mmol/L (3.5-5.1); Sodium 136 mmol/L (136-145)
[2021-12-31] MEDS ORDERED: Levofloxacin 500 mg/D5W 100 ml Premix Bag ONE (13:44)
[2021-12-31] MEDS ORDERED: fentaNYL Citrate/PF 100 MCG/2 ML SYRINGE ONE (14:47)
[2021-12-31] MEDS ORDERED: Lidocaine 1% PF 5 ML VIAL ONE (14:57)
[2021-12-31] MEDS ORDERED: Heparin 5,000 UNITS/ML VIAL ONE (14:58)
[2021-12-31] MEDS ORDERED: Protamine Sulfate 50 MG/5 ML VIAL ONE (14:58)
[2021-12-31] MEDS ORDERED: Bupivacaine HCl 0.5%/Epinephrine 1:200,000/PF 30 ml Vial ONE (14:58)
[2021-12-31] MEDS ORDERED: Ketamine 50 MG/ML (10ML VIAL) ONE (15:12)
[2021-12-31] MEDS ORDERED: SUGAMMADEX SODIUM 200 MG/2 ML VIAL ONE (15:13)
[2021-12-31] MEDS ORDERED: Succinylcholine 200 MG/10 ml SYRINGE FS ONE (15:20)
[2021-12-31] MEDS ORDERED: Lidocaine 1% MPF 2 ML VIAL ONE (15:20)
[2021-12-31] MEDS ORDERED: PROPOFOL 200 MG/20 ML VIAL ONE (15:20)
[2021-12-31] MEDS ORDERED: Rocuronium Bromide 10 MG/ML (10ML VIAL) ONE (15:20)
[2021-12-31] MEDS ORDERED: Heparin 1,000 UNITS/ML VIAL ONE (19:16)
== END 2021-12-31 19:50 ==
LOC: SDC 11:19
PROVIDERS: ATTEND Specialist
PROC: 031B0JF Bypass Right Radial Artery to Lower Arm Vein with Synthetic Substitute, Open Approach (ICD-10-PCS; principal; 2021-12-31)
DX: I12.0 Hypertensive chronic kidney disease with stage 5 chronic kidney disease or end stage renal disease (principal); N18.6 End stage renal disease; T82.590A Other mechanical complication of surgically created arteriovenous fistula, initial encounter; I87.1 Compression of vein; I48.91 Unspecified atrial fibrillation; Z87.891 Personal history of nicotine dependence; Z79.01 Long term (current) use of anticoagulants; Z79.890 Hormone replacement therapy; Z79.899 Other long term (current) drug therapy; Z88.0 Allergy status to penicillin; Z88.8 Allergy status to other drugs, medicaments and biological substances; Z99.2 Dependence on renal dialysis; Y81.3 Surgical instruments, materials and general- and plastic-surgery devices (including sutures) associated with adverse incidents
CPT/HCPCS: 80048; 85025; C1713; C1776; J1644; J1956; J2704; J2720; L8670

== ENCOUNTER 2022-02-05 03:44 | Inpatient (IN) | payer MEDICARE, OTHER ==
[2022-02-05 04:30] LABS: Mean Corpuscular HGB CONC 33.1 g/dL (32.0-36.0); Mean Corpuscular Hemoglobin 33.1 pg (27.0-31.0); Mean Corpuscular Volume 99.9 fL (78.0-98.0); Mean Platelet Volume 8.5 fL (7.4-10.4); Platelet Count 276 thou/uL (130-400); Red Blood Cell (RBC) Count 3.32 mill/uL (4.20-5.40); White Blood Cell (WBC) Count 32.9 thou/uL (4.8-10.8)
[2022-02-05 04:58] LABS: Anisocytosis SLIGHT = 6-15 cells (100X) (0-5/hpf); Band 3 % (5-11); Burr Cells SLIGHT = 2-5 cells (100X) (0-1/hpf); Lymphocytes 4 % (21-51); MDiff Complete? YES; Macrocytosis SLIGHT = 6-15 cells (100X) (0-5/hpf); Monocytes 6 % (0-10); Neutrophil 87 % (42-75); Ovalocytes SLIGHT = 2-5 cells (100X) (0-1/hpf); Platelet Morphology Comment Appears Adequate; Toxic Granulation SLIGHT
[2022-02-05] MEDS ORDERED: Vancomycin 1 GM/200 ML BAG ONE (05:13)
[2022-02-05 05:27] LABS: ALT (SGPT) Less than 7 U/L (8-55); AST (SGOT) 17 U/L (5-34); Albumin 3.6 g/dL (3.4-4.8); Alkaline Phosphatase 254 U/L (40-110); Anion Gap 26 mmol/L (10-20); BUN (Urea Nitrogen) 41 mg/dL (9.8-20.1); Bilirubin, Total 0.5 mg/dL (0.2-1.2); Calc. Creatinine Clearance 0 mL/min (70-130); Calcium 8.9 mg/dL (7.8-10.44); Carbon Dioxide 17 mmol/L (23-31); Chloride 91 mmol/L (98-107); Estimated GFR 5; Globulin 3.6 g/dL (2.4-3.5); Glucose 103 mg/dL (83-110); Protein, Total 7.2 g/dL (5.8-8.1); Sodium 127 mmol/L (136-145)
[2022-02-05 05:29] LABS: Potassium 7.1 mmol/L (3.5-5.1)
[2022-02-05] MEDS ORDERED: Insulin Regular 300 UNITS/3 ML VIAL ONE (05:59)
[2022-02-05] MEDS ORDERED: Calcium Chloride 1 GM/10 ML Abboject SYRINGE ONE (05:59)
[2022-02-05] MEDS ORDERED: Sodium Bicarb 50 MEQ/50 ML VIAL ONE ×2 (05:59→06:48)
[2022-02-05] MEDS ORDERED: Albuterol Sulfate 2.5 mg/0.5 ml Neb ONE ×3 (06:14→06:58)
[2022-02-05 06:15] LABS: SARS-CoV-2 NAA Rapid Test Not Detected (NotDetected)
[2022-02-05] MEDS ORDERED: Dextrose 50% Abboject 50 ML SYRINGE SLOW IVP SCH (06:15)
[2022-02-05] MEDS ORDERED: Albuterol Sulfate 2.5 mg/3 ml Neb ONE (06:58)
[2022-02-05 08:16] LABS: HBSAg Index 0.84 S/CO (0-0.99); Hep B Surf Ag Non-Reactive S/CO (NonReactive)
[2022-02-05] MEDS ORDERED: Calcium Carbonate 500 MG ChewTAB PO PRN (09:02)
[2022-02-05] MEDS ORDERED: Vancomycin 1 GM in Premix Bag 1 BAG IVPB SCH (09:15)
[2022-02-05] MEDS ORDERED: hydrALAZINE 20 MG/ML VIAL SLOW IVP PRN (09:16)
[2022-02-05] MEDS ORDERED: Heparin 10,000 UNITS/ 10 ML VIAL ONE (09:36)
[2022-02-05 10:20] LABS: INR-International Normal Ratio 1.4; PTT 48.3 sec (22.9-36.1); Prothrombin Time 17.4 sec (12.0-14.7)
[2022-02-05] MEDS ORDERED: Iopamidol 370 76% 100 ML VIAL ONE (10:22)
[2022-02-05] MEDS ORDERED: Acetaminophen 325 MG TAB ONE (14:13)
[2022-02-05] MEDS: Acetaminophen 325 MG TAB PO PRN (14:16)
[2022-02-05 16:27] LABS: Anion Gap 14 mmol/L (10-20); BUN (Urea Nitrogen) 16 mg/dL (9.8-20.1); Calc. Creatinine Clearance 0 mL/min (70-130); Calcium 8.4 mg/dL (7.8-10.44); Carbon Dioxide 28 mmol/L (23-31); Chloride 95 mmol/L (98-107); Estimated GFR 12; Glucose 106 mg/dL (83-110); Potassium 4.5 mmol/L (3.5-5.1); Sodium 132 mmol/L (136-145)
[2022-02-05 17:47] LABS: Anion Gap 16 mmol/L (10-20); BUN (Urea Nitrogen) 16 mg/dL (9.8-20.1); Calc. Creatinine Clearance 0 mL/min (70-130); Calcium 8.3 mg/dL (7.8-10.44); Carbon Dioxide 27 mmol/L (23-31); Chloride 96 mmol/L (98-107); Estimated GFR 12; Glucose 94 mg/dL (83-110); Potassium 4.6 mmol/L (3.5-5.1); Sodium 134 mmol/L (136-145)
[2022-02-05] MEDS ORDERED: HYDROcodone/Acetaminophen 5/325 mg Tablet PO PRN (18:36)
[2022-02-05] MEDS ORDERED: HYDROcodone/Acetaminophen 5/325 mg Tablet ONE (18:43)
[2022-02-05 20:46] VITALS: BMI 27.7
[2022-02-05] MEDS ORDERED: Cefepime 1 GM in Sodium Chloride 0.9% 100 ML IVPB SCH (21:00)
[2022-02-05] MEDS ORDERED: Vancomycin Diaylsis Sliding Scale (Wt 71-99) FS SCH (22:15)
[2022-02-05] MEDS ORDERED: Vancomycin HCl 500 MG in Sodium Chloride 0.9% 100 ML IVPB SCH (23:00)
[2022-02-06] MEDS: Famotidine 20 MG TAB PO SCH ×2 (00:14→08:32)
[2022-02-06] MEDS: Saccharomyces boulardii 250 MG CAP PO SCH (08:32)
[2022-02-06 10:49] LABS: #Basophils 0.1 thou/uL (0.0-0.2); #Eosinphils 0.1 thou/uL (0.0-0.7); #Lymphocytes 0.9 thou/uL (1.20-3.40); #Monocytes 0.6 thou/uL (0.11-0.59); #Neutrophils 7.7 thou/uL (1.40-6.50); %Basophils 0.7 % (0.0-1.0); %Lymphocytes 9.5 % (21.0-51.0); %Monocytes 6.3 % (0.0-10.0); %Neutrophils 82.5 % (42.0-75.0); Hemoglobin 9.5 g/dL (12.0-16.0); Mean Corpuscular HGB CONC 31.1 g/dL (32.0-36.0); Mean Corpuscular Hemoglobin 32.1 pg (27.0-31.0); Mean Platelet Volume 8.3 fL (7.4-10.4); Platelet Count 209 thou/uL (130-400); Red Blood Cell (RBC) Count 2.96 mill/uL (4.20-5.40); White Blood Cell (WBC) Count 9.3 thou/uL (4.8-10.8)
[2022-02-06 11:06] LABS: ALT (SGPT) Less than 7 U/L (8-55); AST (SGOT) 12 U/L (5-34); Albumin 3.1 g/dL (3.4-4.8); Alkaline Phosphatase 204 U/L (40-110); Anion Gap 18 mmol/L (10-20); BUN (Urea Nitrogen) 24 mg/dL (9.8-20.1); Bilirubin, Total 0.4 mg/dL (0.2-1.2); Calc. Creatinine Clearance 11 mL/min (70-130); Calcium 8.7 mg/dL (7.8-10.44); Carbon Dioxide 24 mmol/L (23-31); Chloride 97 mmol/L (98-107); Estimated GFR 9; Globulin 3.2 g/dL (2.4-3.5); Glucose 128 mg/dL (83-110); Potassium 5.6 mmol/L (3.5-5.1); Protein, Total 6.3 g/dL (5.8-8.1); Sodium 133 mmol/L (136-145)
[2022-02-06] MEDS ORDERED: FLU VACC QS2022-23(65YR UP)/PF 240 MCG/0.7 ML SYRINGE IM ONE (12:30)
[2022-02-06] MEDS ORDERED: LOKELMA 10 GM PACKET PO SCH (12:45)
[2022-02-06 18:09] LABS: Anion Gap 16 mmol/L (10-20); BUN (Urea Nitrogen) 13 mg/dL (9.8-20.1); Calc. Creatinine Clearance 18 mL/min (70-130); Calcium 8.5 mg/dL (7.8-10.44); Carbon Dioxide 25 mmol/L (23-31); Chloride 98 mmol/L (98-107); Estimated GFR 16; Glucose 137 mg/dL (83-110); Potassium 4.6 mmol/L (3.5-5.1); Sodium 134 mmol/L (136-145)
[2022-02-06] MEDS: Sevelamer Carbonate 800 MG TAB PO SCH (18:20)
[2022-02-06] MEDS: Cefepime 0.5 GM, Admixture Fee 1 EACH in Sodium Chloride 0.9% 100 ML IVPB SCH (18:20)
[2022-02-06] MEDS: Acetaminophen 325 MG TAB PO PRN (18:25)
[2022-02-06] MEDS: Apixaban 2.5 MG TAB PO SCH (21:45)
[2022-02-06] MEDS: Metoprolol Tartrate 25 MG TAB PO SCH (21:45)
[2022-02-07] MEDS ORDERED: Vancomycin HCl 125 MG/5 ML (BATCHED) UDCUP PO SCH (02:45)
[2022-02-07 04:48] LABS: Hemoglobin 8.3 g/dL (12.0-16.0); Mean Platelet Volume 8.3 fL (7.4-10.4); Platelet Count 196 thou/uL (130-400); RBC Distribution Width 14.7 % (11.5-14.5); Red Blood Cell (RBC) Count 2.51 mill/uL (4.20-5.40); White Blood Cell (WBC) Count 7.2 thou/uL (4.8-10.8)
[2022-02-07 06:03] LABS: BUN (Urea Nitrogen) 16 mg/dL (9.8-20.1); Calc. Creatinine Clearance 15 mL/min (70-130); Calcium 8.3 mg/dL (7.8-10.44); Carbon Dioxide 28 mmol/L (23-31); Chloride 97 mmol/L (98-107); Estimated GFR 13; Glucose 155 mg/dL (83-110); Potassium 4.1 mmol/L (3.5-5.1); Sodium 135 mmol/L (136-145)
[2022-02-07] MEDS: Vancomycin HCl 125 MG/5 ML (BATCHED) UDCUP PO SCH ×3 (06:08→18:12)
[2022-02-07] MEDS: Levothyroxine Sodium 25 MCG TAB PO SCH (06:08)
[2022-02-07 06:29] LABS: Anion Gap 14 mmol/L (10-20)
[2022-02-07] MEDS: Famotidine 20 MG TAB PO SCH (10:12)
[2022-02-07] MEDS: Ferrous Sulfate 325 MG TAB PO SCH (10:12)
[2022-02-07] MEDS: Apixaban 2.5 MG TAB PO SCH ×2 (10:12→21:22)
[2022-02-07] MEDS: Metoprolol Tartrate 25 MG TAB PO SCH ×2 (10:12→21:22)
[2022-02-07] MEDS: Sevelamer Carbonate 800 MG TAB PO SCH ×3 (10:12→17:55)
[2022-02-07] MEDS: Amiodarone 200 MG TAB PO SCH (10:12)
[2022-02-07] MEDS: Escitalopram Oxalate 10 mg Tablet PO SCH (10:12)
[2022-02-07] MEDS: Saccharomyces boulardii 250 MG CAP PO SCH (10:12)
[2022-02-07] MEDS: OLANZapine 5 MG TAB PO SCH (10:14)
[2022-02-07 13:06] LABS: Campy jejuni + coli by PCR Negative (Negative); STEC Shiga Toxin 1+2 Negative (Negative); Salmonella spp. by PCR Negative (Negative); Shigella spp + EIEC by PCR Negative (Negative)
[2022-02-07] MEDS ORDERED: Lidocaine 1% (PF) 30 ML VIAL ONE (17:24)
[2022-02-07] MEDS: Cefepime 0.5 GM, Admixture Fee 1 EACH in Sodium Chloride 0.9% 100 ML IVPB SCH (17:55)
[2022-02-07] MEDS: Epoetin (ESRD) 20,000 UNITS/ML SC SCH (18:11)
[2022-02-08] MEDS: Vancomycin HCl 125 MG/5 ML (BATCHED) UDCUP PO SCH ×4 (00:19→19:03)
[2022-02-08] MEDS: Levothyroxine Sodium 25 MCG TAB PO SCH (05:47)
[2022-02-08] MEDS: Sevelamer Carbonate 800 MG TAB PO SCH ×3 (08:00→17:29)
[2022-02-08] MEDS: OLANZapine 5 MG TAB PO SCH ×2 (11:41→21:36)
[2022-02-08] MEDS: Ferrous Sulfate 325 MG TAB PO SCH (11:41)
[2022-02-08] MEDS: Famotidine 20 MG TAB PO SCH (11:42)
[2022-02-08] MEDS: Amiodarone 200 MG TAB PO SCH (11:42)
[2022-02-08] MEDS: Metoprolol Tartrate 25 MG TAB PO SCH ×2 (11:42→21:00)
[2022-02-08] MEDS: Saccharomyces boulardii 250 MG CAP PO SCH (11:42)
[2022-02-08] MEDS: Apixaban 2.5 MG TAB PO SCH ×2 (11:42→20:59)
[2022-02-08] MEDS: Escitalopram Oxalate 10 mg Tablet PO SCH (11:42)
[2022-02-08] MEDS: Cefepime 0.5 GM, Admixture Fee 1 EACH in Sodium Chloride 0.9% 100 ML IVPB SCH (17:29)
[2022-02-08] MEDS ORDERED: OLANZapine 5 MG TAB PO SCH (19:15)
[2022-02-09] MEDS: Vancomycin HCl 125 MG/5 ML (BATCHED) UDCUP PO SCH ×4 (00:47→18:15)
[2022-02-09] MEDS: Levothyroxine Sodium 25 MCG TAB PO SCH (05:30)
[2022-02-09] MEDS: Sevelamer Carbonate 800 MG TAB PO SCH ×3 (09:54→16:23)
[2022-02-09] MEDS: Saccharomyces boulardii 250 MG CAP PO SCH (09:54)
[2022-02-09] MEDS: Ferrous Sulfate 325 MG TAB PO SCH ×2 (09:54→21:21)
[2022-02-09] MEDS: Escitalopram Oxalate 10 mg Tablet PO SCH (09:55)
[2022-02-09] MEDS: Apixaban 2.5 MG TAB PO SCH ×2 (09:55→21:21)
[2022-02-09] MEDS: Amiodarone 200 MG TAB PO SCH (09:55)
[2022-02-09] MEDS: Famotidine 20 MG TAB PO SCH (09:55)
[2022-02-09] MEDS: Metoprolol Tartrate 25 MG TAB PO SCH ×2 (09:55→21:23)
[2022-02-09] MEDS: OLANZapine 5 MG TAB PO SCH ×2 (10:43→21:23)
[2022-02-09] MEDS: Cefepime 0.5 GM, Admixture Fee 1 EACH in Sodium Chloride 0.9% 100 ML IVPB SCH (18:05)
[2022-02-09] MEDS: Acetaminophen 325 MG TAB PO PRN (21:21)
[2022-02-10] MEDS ORDERED: HYDROcodone/Acetaminophen 5/325 mg Tablet PO SCH (02:45)
[2022-02-10] MEDS: Vancomycin HCl 125 MG/5 ML (BATCHED) UDCUP PO SCH ×4 (04:05→17:26)
[2022-02-10] MEDS: Levothyroxine Sodium 25 MCG TAB PO SCH (05:32)
[2022-02-10 10:28] LABS: #Eosinphils 0.1 thou/uL (0.0-0.7); #Lymphocytes 1.5 thou/uL (1.20-3.40); #Monocytes 0.7 thou/uL (0.11-0.59); %Basophils 0.5 % (0.0-1.0); %Eosinophils 0.8 % (0.0-10.0); %Lymphocytes 16.3 % (21.0-51.0); %Monocytes 7.7 % (0.0-10.0); %Neutrophils 74.8 % (42.0-75.0); Hemoglobin 9.5 g/dL (12.0-16.0); Mean Corpuscular HGB CONC 31.3 g/dL (32.0-36.0); Mean Corpuscular Hemoglobin 31.1 pg (27.0-31.0); Mean Corpuscular Volume 99.5 fL (78.0-98.0); Mean Platelet Volume 7.5 fL (7.4-10.4); Platelet Count 251 thou/uL (130-400); RBC Distribution Width 14.7 % (11.5-14.5); Red Blood Cell (RBC) Count 3.05 mill/uL (4.20-5.40); White Blood Cell (WBC) Count 9.4 thou/uL (4.8-10.8)
[2022-02-10] MEDS: Sevelamer Carbonate 800 MG TAB PO SCH ×3 (13:22→17:26)
[2022-02-10] MEDS: Amlodipine 5 MG TAB PO SCH (13:40)
[2022-02-10] MEDS: Amiodarone 200 MG TAB PO SCH (13:42)
[2022-02-10] MEDS: Atorvastatin Calcium 20 MG TAB PO SCH (13:42)
[2022-02-10] MEDS: Saccharomyces boulardii 250 MG CAP PO SCH (13:42)
[2022-02-10] MEDS: Apixaban 2.5 MG TAB PO SCH ×2 (13:42→21:20)
[2022-02-10] MEDS: Ferrous Sulfate 325 MG TAB PO SCH ×2 (13:42→21:20)
[2022-02-10] MEDS: Escitalopram Oxalate 10 mg Tablet PO SCH (13:42)
[2022-02-10] MEDS: Famotidine 20 MG TAB PO SCH (13:42)
[2022-02-10] MEDS: Metoprolol Tartrate 25 MG TAB PO SCH (13:43)
[2022-02-10] MEDS: Cefepime 0.5 GM, Admixture Fee 1 EACH in Sodium Chloride 0.9% 100 ML IVPB SCH (16:20)
[2022-02-10] MEDS: OLANZapine 5 MG TAB PO SCH (21:20)
[2022-02-10] MEDS: Zolpidem Tartrate 5 MG TAB PO PRN (21:24)
[2022-02-11] MEDS: Vancomycin HCl 125 MG/5 ML (BATCHED) UDCUP PO SCH ×4 (00:30→19:56)
[2022-02-11 04:58] LABS: #Basophils 0.1 thou/uL (0.0-0.2); #Eosinphils 0.1 thou/uL (0.0-0.7); #Lymphocytes 1.9 thou/uL (1.20-3.40); #Monocytes 0.8 thou/uL (0.11-0.59); #Neutrophils 7.7 thou/uL (1.40-6.50); %Basophils 0.6 % (0.0-1.0); %Eosinophils 0.7 % (0.0-10.0); %Lymphocytes 17.6 % (21.0-51.0); %Monocytes 7.9 % (0.0-10.0); %Neutrophils 73.2 % (42.0-75.0); Hemoglobin 10.6 g/dL (12.0-16.0); Mean Corpuscular HGB CONC 32.1 g/dL (32.0-36.0); Mean Corpuscular Hemoglobin 32.4 pg (27.0-31.0); Mean Platelet Volume 8.3 fL (7.4-10.4); Platelet Count 291 thou/uL (130-400); RBC Distribution Width 15.5 % (11.5-14.5); Red Blood Cell (RBC) Count 3.27 mill/uL (4.20-5.40); White Blood Cell (WBC) Count 10.5 thou/uL (4.8-10.8)
[2022-02-11 05:21] LABS: Anion Gap 16 mmol/L (10-20); BUN (Urea Nitrogen) 10 mg/dL (9.8-20.1); Calc. Creatinine Clearance 16 mL/min (70-130); Calcium 9.4 mg/dL (7.8-10.44); Carbon Dioxide 24 mmol/L (23-31); Chloride 97 mmol/L (98-107); Estimated GFR 14; Glucose 116 mg/dL (83-110); Potassium 4.4 mmol/L (3.5-5.1); Sodium 133 mmol/L (136-145)
[2022-02-11] MEDS: Levothyroxine Sodium 25 MCG TAB PO SCH (05:40)
[2022-02-11] MEDS: Sevelamer Carbonate 800 MG TAB PO SCH ×3 (09:39→17:20)
[2022-02-11] MEDS: Saccharomyces boulardii 250 MG CAP PO SCH (09:39)
[2022-02-11] MEDS: Amiodarone 200 MG TAB PO SCH (09:40)
[2022-02-11] MEDS: Ferrous Sulfate 325 MG TAB PO SCH ×2 (09:40→20:06)
[2022-02-11] MEDS: Atorvastatin Calcium 20 MG TAB PO SCH (09:40)
[2022-02-11] MEDS: Amlodipine 5 MG TAB PO SCH (09:40)
[2022-02-11] MEDS: Apixaban 2.5 MG TAB PO SCH ×2 (09:40→20:06)
[2022-02-11] MEDS: Escitalopram Oxalate 10 mg Tablet PO SCH (09:40)
[2022-02-11] MEDS: Famotidine 20 MG TAB PO SCH (09:41)
[2022-02-11] MEDS ORDERED: HYDROcodone/Acetaminophen 10/325 mg Tablet PO SCH (10:30)
[2022-02-11] MEDS: OLANZapine 5 MG TAB PO SCH (20:06)
[2022-02-12] MEDS: Zolpidem Tartrate 5 MG TAB PO PRN (01:20)
[2022-02-12] MEDS: Acetaminophen 325 MG TAB PO PRN (01:20)
[2022-02-12] MEDS: Vancomycin HCl 125 MG/5 ML (BATCHED) UDCUP PO SCH ×6 (02:31→22:05)
[2022-02-12 04:50] LABS: #Lymphocytes 1.9 thou/uL (1.20-3.40); #Monocytes 0.7 thou/uL (0.11-0.59); #Neutrophils 6.7 thou/uL (1.40-6.50); %Basophils 0.3 % (0.0-1.0); %Eosinophils 0.4 % (0.0-10.0); %Lymphocytes 20.6 % (21.0-51.0); %Monocytes 7.1 % (0.0-10.0); %Neutrophils 71.7 % (42.0-75.0); Mean Corpuscular HGB CONC 33.4 g/dL (32.0-36.0); Mean Corpuscular Hemoglobin 33.8 pg (27.0-31.0); Mean Platelet Volume 9.9 fL (7.4-10.4); Platelet Count 215 thou/uL (130-400); RBC Distribution Width 15.3 % (11.5-14.5); Red Blood Cell (RBC) Count 2.97 mill/uL (4.20-5.40); White Blood Cell (WBC) Count 9.3 thou/uL (4.8-10.8)
[2022-02-12] MEDS: Levothyroxine Sodium 25 MCG TAB PO SCH (06:06)
[2022-02-12] MEDS: HYDROcodone/Acetaminophen 10/325 mg Tablet PO SCH (06:07)
[2022-02-12] MEDS ORDERED: Ondansetron ODT 4 MG TAB PO SCH (07:45)
[2022-02-12 08:45] LABS: Anion Gap 20 mmol/L (10-20); BUN (Urea Nitrogen) 17 mg/dL (9.8-20.1); Calc. Creatinine Clearance 11 mL/min (70-130); Calcium 9.3 mg/dL (7.8-10.44); Carbon Dioxide 22 mmol/L (23-31); Chloride 97 mmol/L (98-107); Estimated GFR 9; Glucose 195 mg/dL (83-110); Potassium 5.6 mmol/L (3.5-5.1); Sodium 133 mmol/L (136-145)
[2022-02-12 09:23] LABS: Magnesium 2.2 mg/dL (1.6-2.6); Phosphorus 3.3 mg/dL (2.3-4.7)
[2022-02-12] MEDS: Amlodipine 5 MG TAB PO SCH (14:47)
[2022-02-12] MEDS: Famotidine 20 MG TAB PO SCH (14:49)
[2022-02-12] MEDS: Ferrous Sulfate 325 MG TAB PO SCH ×3 (14:49→19:42)
[2022-02-12] MEDS: Apixaban 2.5 MG TAB PO SCH ×2 (14:49→19:42)
[2022-02-12] MEDS: Saccharomyces boulardii 250 MG CAP PO SCH (14:49)
[2022-02-12] MEDS: Escitalopram Oxalate 10 mg Tablet PO SCH (14:49)
[2022-02-12] MEDS: Atorvastatin Calcium 20 MG TAB PO SCH (14:49)
[2022-02-12] MEDS: Sevelamer Carbonate 800 MG TAB PO SCH ×3 (14:50→17:53)
[2022-02-12] MEDS: diphenhydrAMINE 25 MG CAP PO SCH (19:42)
[2022-02-12] MEDS: guaiFENesin ER 600 MG TAB PO SCH (19:43)
[2022-02-12] MEDS: OLANZapine 5 MG TAB PO SCH (19:43)
[2022-02-13 00:15] LABS: Bacteria/HPF 3+ HPF (None Seen); Bilirubin Negative (Negative); Blood, Urine 2+ (Negative); Clarity Extra Turbid (Clear); Glucose, Urine (Dipstick) Normal (Negative); Ketone, Urine Negative (Negative); Leukocyte 500 Leu/uL (Negative); Nitrite Negative (Negative); Protein, Urine (Dipstick) 300 mg/dL (Neg-Trace); Specific Gravity, Urine 1.013 (1.002-1.036); Squamous Epithelial None Seen HPF (0-3); Urobilinogen Normal mg/dL (Less than 2); WBC/HPF Greater than 50 HPF (0-3)
[2022-02-13 00:21] LABS: Urine Culture Reflex Yes Yes
[2022-02-13 04:49] LABS: #Basophils 0.1 thou/uL (0.0-0.2); #Lymphocytes 1.9 thou/uL (1.20-3.40); #Monocytes 0.8 thou/uL (0.11-0.59); #Neutrophils 7.7 thou/uL (1.40-6.50); %Basophils 0.7 % (0.0-1.0); %Eosinophils 0.3 % (0.0-10.0); %Lymphocytes 17.8 % (21.0-51.0); %Monocytes 7.5 % (0.0-10.0); %Neutrophils 73.7 % (42.0-75.0); Mean Corpuscular HGB CONC 32.8 g/dL (32.0-36.0); Mean Corpuscular Hemoglobin 33.7 pg (27.0-31.0); Platelet Count 317 thou/uL (130-400); RBC Distribution Width 15.6 % (11.5-14.5); Red Blood Cell (RBC) Count 2.97 mill/uL (4.20-5.40); White Blood Cell (WBC) Count 10.5 thou/uL (4.8-10.8)
[2022-02-13] MEDS: Levothyroxine Sodium 25 MCG TAB PO SCH (05:09)
[2022-02-13] MEDS: Vancomycin HCl 125 MG/5 ML (BATCHED) UDCUP PO SCH ×4 (05:09→20:53)
[2022-02-13 05:15] LABS: ALT (SGPT) 8 U/L (8-55); AST (SGOT) 11 U/L (5-34); Albumin 3.4 g/dL (3.4-4.8); Alkaline Phosphatase 200 U/L (40-110); Anion Gap 16 mmol/L (10-20); BUN (Urea Nitrogen) 8 mg/dL (9.8-20.1); Calc. Creatinine Clearance 9 mL/min (70-130); Calcium 9.2 mg/dL (7.8-10.44); Carbon Dioxide 28 mmol/L (23-31); Chloride 96 mmol/L (98-107); Estimated GFR 17; Globulin 3.3 g/dL (2.4-3.5); Glucose 127 mg/dL (83-110); Potassium 3.9 mmol/L (3.5-5.1); Protein, Total 6.7 g/dL (5.8-8.1); Sodium 136 mmol/L (136-145)
[2022-02-13] MEDS: HYDROcodone/Acetaminophen 10/325 mg Tablet PO SCH (09:51)
[2022-02-13] MEDS: Famotidine 20 MG TAB PO SCH (09:52)
[2022-02-13] MEDS: Apixaban 2.5 MG TAB PO SCH (09:52)
[2022-02-13] MEDS: Escitalopram Oxalate 10 mg Tablet PO SCH (09:52)
[2022-02-13] MEDS: Ferrous Sulfate 325 MG TAB PO SCH ×2 (09:52→20:54)
[2022-02-13] MEDS: Amlodipine 5 MG TAB PO SCH (09:52)
[2022-02-13] MEDS: Atorvastatin Calcium 20 MG TAB PO SCH (09:52)
[2022-02-13] MEDS: cefTRIAXone\\ROCEPHIN 1 GM in Sodium Chloride 0.9% 100 ML IVPB SCH (09:52)
[2022-02-13] MEDS: Saccharomyces boulardii 250 MG CAP PO SCH (09:52)
[2022-02-13] MEDS: guaiFENesin ER 600 MG TAB PO SCH ×2 (09:52→20:54)
[2022-02-13] MEDS: Sevelamer Carbonate 800 MG TAB PO SCH ×3 (09:53→18:11)
[2022-02-13] MEDS ORDERED: Nitroglycerin 0.4 MG TAB (25 Tab Bottle) ONE (10:36)
[2022-02-13 11:29] LABS: Troponin I 0.178 ng/mL (< 0.028)
[2022-02-13] MEDS ORDERED: Aspirin Chewable 81 MG TAB PO STA (12:15)
[2022-02-13] MEDS ORDERED: Aspirin Chewable 81 MG TAB PO SCH (12:30)
[2022-02-13 14:44] LABS: CKMB 2.3 ng/mL (0-6.6)
[2022-02-13] MEDS ORDERED: Clopidogrel Bisulfate 300 MG TAB PO SCH (18:00)
[2022-02-13] MEDS: Nitroglycerin 2% Ointment 1 INCH/1 GM Packet TOP SCH (18:11)
[2022-02-13] MEDS: OLANZapine 5 MG TAB PO SCH (20:54)
[2022-02-13] MEDS: diphenhydrAMINE 25 MG CAP PO SCH (20:54)
[2022-02-14] MEDS: Vancomycin HCl 125 MG/5 ML (BATCHED) UDCUP PO SCH ×5 (02:36→20:37)
[2022-02-14] MEDS: Nitroglycerin 2% Ointment 1 INCH/1 GM Packet TOP SCH ×3 (02:36→16:45)
[2022-02-14] MEDS ORDERED: Lorazepam 2 MG/ML VIAL SLOW IVP SCH (03:45)
[2022-02-14 04:57] LABS: #Eosinphils 0.1 thou/uL (0.0-0.7); #Lymphocytes 1.3 thou/uL (1.20-3.40); #Monocytes 1.1 thou/uL (0.11-0.59); #Neutrophils 8.9 thou/uL (1.40-6.50); %Basophils 0.3 % (0.0-1.0); %Eosinophils 1.2 % (0.0-10.0); %Lymphocytes 10.9 % (21.0-51.0); %Monocytes 9.6 % (0.0-10.0); Hemoglobin 9.5 g/dL (12.0-16.0); Mean Corpuscular HGB CONC 32.1 g/dL (32.0-36.0); Mean Corpuscular Hemoglobin 32.7 pg (27.0-31.0); Mean Platelet Volume 8.3 fL (7.4-10.4); Platelet Count 256 thou/uL (130-400); RBC Distribution Width 15.3 % (11.5-14.5); Red Blood Cell (RBC) Count 2.92 mill/uL (4.20-5.40); White Blood Cell (WBC) Count 11.4 thou/uL (4.8-10.8)
[2022-02-14 05:11] LABS: ALT (SGPT) Less than 7 U/L (8-55); AST (SGOT) 12 U/L (5-34); Albumin 3.1 g/dL (3.4-4.8); Alkaline Phosphatase 173 U/L (40-110); Anion Gap 16 mmol/L (10-20); BUN (Urea Nitrogen) 15 mg/dL (9.8-20.1); Bilirubin, Total 0.9 mg/dL (0.2-1.2); Calc. Creatinine Clearance 13 mL/min (70-130); Calcium 9.3 mg/dL (7.8-10.44); Carbon Dioxide 26 mmol/L (23-31); Chloride 97 mmol/L (98-107); Estimated GFR 11; Globulin 3.1 g/dL (2.4-3.5); Glucose 121 mg/dL (83-110); Magnesium 1.9 mg/dL (1.6-2.6); Phosphorus 1.8 mg/dL (2.3-4.7); Potassium 3.8 mmol/L (3.5-5.1); Protein, Total 6.2 g/dL (5.8-8.1); Sodium 135 mmol/L (136-145)
[2022-02-14] MEDS: Levothyroxine Sodium 25 MCG TAB PO SCH (06:22)
[2022-02-14] MEDS: Sevelamer Carbonate 800 MG TAB PO SCH ×3 (10:33→16:45)
[2022-02-14] MEDS: HYDROcodone/Acetaminophen 10/325 mg Tablet PO SCH (10:34)
[2022-02-14] MEDS: Heparin 5,000 UNITS/ML VIAL SC SCH ×2 (11:14→20:38)
[2022-02-14] MEDS: Epoetin (ESRD) 20,000 UNITS/ML SC SCH (12:22)
[2022-02-14] MEDS: Ferrous Sulfate 325 MG TAB PO SCH ×2 (12:22→20:38)
[2022-02-14] MEDS: cefTRIAXone\\ROCEPHIN 1 GM in Sodium Chloride 0.9% 100 ML IVPB SCH (12:22)
[2022-02-14] MEDS: Famotidine 20 MG TAB PO SCH (12:22)
[2022-02-14] MEDS: Amiodarone 200 MG TAB PO SCH (12:22)
[2022-02-14] MEDS: Atorvastatin Calcium 20 MG TAB PO SCH (12:22)
[2022-02-14] MEDS: Clopidogrel Bisulfate 75 MG TAB PO SCH (12:22)
[2022-02-14] MEDS: Saccharomyces boulardii 250 MG CAP PO SCH (12:22)
[2022-02-14] MEDS: Amlodipine 5 MG TAB PO SCH (12:22)
[2022-02-14] MEDS: guaiFENesin ER 600 MG TAB PO SCH ×2 (12:22→20:38)
[2022-02-14] MEDS: Escitalopram Oxalate 10 mg Tablet PO SCH (12:22)
[2022-02-14 15:38] LABS: Base Excess 7.5 mEq/L (-2.0 to +3.0); Calcium, Ionized (venous) 1.08 mmol/L (1.16-1.32); Chloride (VBG) 100 mmol/L (98-106); Hemoglobin (Hb) 11.6 g/dL (11.7-16.1); Potassium (VBG) 3.59 mmol/L (3.70-5.30); Sodium 139.3 mmol/L (133-146); pH (venous) 7.44 (7.32-7.43)
[2022-02-14 15:40] LABS: Actual Bicarbonate (HCO3v) 33 mEq/L (22-28)
[2022-02-14] MEDS: OLANZapine 5 MG TAB PO SCH (20:38)
[2022-02-14] MEDS: diphenhydrAMINE 25 MG CAP PO SCH (20:38)
[2022-02-14] MEDS: Acetaminophen 325 MG TAB PO PRN (21:18)
[2022-02-15] MEDS: Vancomycin HCl 125 MG/5 ML (BATCHED) UDCUP PO SCH ×4 (02:14→20:28)
[2022-02-15] MEDS: Nitroglycerin 2% Ointment 1 INCH/1 GM Packet TOP SCH ×3 (02:14→17:21)
[2022-02-15 04:46] LABS: #Basophils 0.1 thou/uL (0.0-0.2); #Lymphocytes 1.3 thou/uL (1.20-3.40); #Monocytes 0.7 thou/uL (0.11-0.59); #Neutrophils 7.3 thou/uL (1.40-6.50); %Basophils 0.7 % (0.0-1.0); %Eosinophils 0.5 % (0.0-10.0); %Lymphocytes 14.1 % (21.0-51.0); %Monocytes 7.8 % (0.0-10.0); Hemoglobin 9.8 g/dL (12.0-16.0); Mean Corpuscular HGB CONC 30.8 g/dL (32.0-36.0); Mean Corpuscular Hemoglobin 31.8 pg (27.0-31.0); Mean Platelet Volume 8.3 fL (7.4-10.4); Platelet Count 260 thou/uL (130-400); RBC Distribution Width 15.4 % (11.5-14.5); Red Blood Cell (RBC) Count 3.08 mill/uL (4.20-5.40); White Blood Cell (WBC) Count 9.5 thou/uL (4.8-10.8)
[2022-02-15 05:11] LABS: Anion Gap 17 mmol/L (10-20); BUN (Urea Nitrogen) 13 mg/dL (9.8-20.1); Calc. Creatinine Clearance 0 mL/min (70-130); Carbon Dioxide 26 mmol/L (23-31); Chloride 98 mmol/L (98-107); Estimated GFR 17; Glucose 111 mg/dL (83-110); Sodium 137 mmol/L (136-145)
[2022-02-15] MEDS: Levothyroxine Sodium 25 MCG TAB PO SCH (05:57)
[2022-02-15] MEDS: HYDROcodone/Acetaminophen 10/325 mg Tablet PO SCH (05:57)
[2022-02-15] MEDS: Acetaminophen 325 MG TAB PO PRN (08:07)
[2022-02-15] MEDS: Famotidine 20 MG TAB PO SCH (08:08)
[2022-02-15] MEDS: Escitalopram Oxalate 10 mg Tablet PO SCH (08:08)
[2022-02-15] MEDS: Aspirin Chewable 81 MG TAB PO SCH (08:08)
[2022-02-15] MEDS: guaiFENesin ER 600 MG TAB PO SCH ×2 (08:08→20:28)
[2022-02-15] MEDS: Amlodipine 5 MG TAB PO SCH (08:08)
[2022-02-15] MEDS: Ferrous Sulfate 325 MG TAB PO SCH ×2 (08:08→20:28)
[2022-02-15] MEDS: Amiodarone 200 MG TAB PO SCH (08:09)
[2022-02-15] MEDS: Atorvastatin Calcium 20 MG TAB PO SCH (08:09)
[2022-02-15] MEDS: Saccharomyces boulardii 250 MG CAP PO SCH (08:09)
[2022-02-15] MEDS: Sevelamer Carbonate 800 MG TAB PO SCH ×3 (08:09→17:19)
[2022-02-15] MEDS: Heparin 5,000 UNITS/ML VIAL SC SCH ×2 (08:09→20:29)
[2022-02-15] MEDS: Clopidogrel Bisulfate 75 MG TAB PO SCH (08:09)
[2022-02-15] MEDS: cefTRIAXone\\ROCEPHIN 1 GM in Sodium Chloride 0.9% 100 ML IVPB SCH (08:25)
[2022-02-15] MEDS ORDERED: Acetaminophen 325 MG TAB PO PRN (16:19)
[2022-02-15] MEDS: traMADol HCl 50 MG TAB PO PRN (17:19)
[2022-02-15] MEDS: OLANZapine 5 MG TAB PO SCH (20:28)
[2022-02-15] MEDS: diphenhydrAMINE 25 MG CAP PO SCH (20:28)
[2022-02-16] MEDS: Vancomycin HCl 125 MG/5 ML (BATCHED) UDCUP PO SCH ×4 (01:49→20:14)
[2022-02-16] MEDS: Nitroglycerin 2% Ointment 1 INCH/1 GM Packet TOP SCH ×3 (01:49→17:16)
[2022-02-16] MEDS: Levothyroxine Sodium 25 MCG TAB PO SCH (05:04)
[2022-02-16 05:19] LABS: #Basophils 0.1 thou/uL (0.0-0.2); #Eosinphils 0.2 thou/uL (0.0-0.7); #Lymphocytes 1.4 thou/uL (1.20-3.40); #Monocytes 0.6 thou/uL (0.11-0.59); %Basophils 0.7 % (0.0-1.0); %Eosinophils 1.9 % (0.0-10.0); %Lymphocytes 15.5 % (21.0-51.0); %Neutrophils 75.9 % (42.0-75.0); Hemoglobin 10.1 g/dL (12.0-16.0); Mean Corpuscular HGB CONC 29.6 g/dL (32.0-36.0); Mean Corpuscular Hemoglobin 30.5 pg (27.0-31.0); Mean Platelet Volume 8.4 fL (7.4-10.4); Platelet Count 258 thou/uL (130-400); RBC Distribution Width 15.3 % (11.5-14.5); Red Blood Cell (RBC) Count 3.31 mill/uL (4.20-5.40); White Blood Cell (WBC) Count 9.2 thou/uL (4.8-10.8)
[2022-02-16 05:27] LABS: ALT (SGPT) Less than 7 U/L (8-55); AST (SGOT) 9 U/L (5-34); Alkaline Phosphatase 166 U/L (40-110); Anion Gap 14 mmol/L (10-20); BUN (Urea Nitrogen) 18 mg/dL (9.8-20.1); Bilirubin, Total 0.5 mg/dL (0.2-1.2); Calc. Creatinine Clearance 13 mL/min (70-130); Calcium 8.8 mg/dL (7.8-10.44); Carbon Dioxide 28 mmol/L (23-31); Chloride 94 mmol/L (98-107); Estimated GFR 11; Globulin 3.2 g/dL (2.4-3.5); Glucose 91 mg/dL (83-110); Potassium 4.1 mmol/L (3.5-5.1); Protein, Total 6.2 g/dL (5.8-8.1); Sodium 132 mmol/L (136-145)
[2022-02-16] MEDS: Clopidogrel Bisulfate 75 MG TAB PO SCH (08:44)
[2022-02-16] MEDS: Saccharomyces boulardii 250 MG CAP PO SCH (08:44)
[2022-02-16] MEDS: Sevelamer Carbonate 800 MG TAB PO SCH ×3 (08:44→17:06)
[2022-02-16] MEDS: Aspirin Chewable 81 MG TAB PO SCH (08:44)
[2022-02-16] MEDS: Ferrous Sulfate 325 MG TAB PO SCH ×2 (08:44→20:16)
[2022-02-16] MEDS: guaiFENesin ER 600 MG TAB PO SCH ×2 (08:44→20:16)
[2022-02-16] MEDS: Famotidine 20 MG TAB PO SCH (08:44)
[2022-02-16] MEDS: Amiodarone 200 MG TAB PO SCH (08:44)
[2022-02-16] MEDS: Atorvastatin Calcium 20 MG TAB PO SCH (08:44)
[2022-02-16] MEDS: Heparin 5,000 UNITS/ML VIAL SC SCH ×2 (08:44→20:14)
[2022-02-16] MEDS: Amlodipine 5 MG TAB PO SCH (08:44)
[2022-02-16] MEDS: Escitalopram Oxalate 10 mg Tablet PO SCH (08:44)
[2022-02-16] MEDS: HYDROcodone/Acetaminophen 10/325 mg Tablet PO SCH (08:45)
[2022-02-16] MEDS: cefTRIAXone\\ROCEPHIN 1 GM in Sodium Chloride 0.9% 100 ML IVPB SCH (09:08)
[2022-02-16] MEDS: traMADol HCl 50 MG TAB PO PRN (17:06)
[2022-02-16] MEDS: Cephalexin 250 MG CAP PO SCH (20:16)
[2022-02-16] MEDS: diphenhydrAMINE 25 MG CAP PO SCH (20:16)
[2022-02-16] MEDS: OLANZapine 5 MG TAB PO SCH (20:16)
[2022-02-17] MEDS: Nitroglycerin 2% Ointment 1 INCH/1 GM Packet TOP SCH ×3 (02:09→18:25)
[2022-02-17] MEDS: Vancomycin HCl 125 MG/5 ML (BATCHED) UDCUP PO SCH ×3 (02:09→14:46)
[2022-02-17] MEDS: Acetaminophen 325 MG TAB PO PRN (03:42)
[2022-02-17 05:07] LABS: #Eosinphils 0.1 thou/uL (0.0-0.7); #Lymphocytes 1.3 thou/uL (1.20-3.40); #Monocytes 0.7 thou/uL (0.11-0.59); #Neutrophils 9.1 thou/uL (1.40-6.50); %Basophils 0.4 % (0.0-1.0); %Eosinophils 1.3 % (0.0-10.0); %Lymphocytes 11.5 % (21.0-51.0); %Monocytes 5.9 % (0.0-10.0); %Neutrophils 80.9 % (42.0-75.0); Hemoglobin 10.6 g/dL (12.0-16.0); Mean Corpuscular HGB CONC 30.4 g/dL (32.0-36.0); Mean Corpuscular Hemoglobin 31.2 pg (27.0-31.0); Mean Platelet Volume 8.7 fL (7.4-10.4); Platelet Count 286 thou/uL (130-400); RBC Distribution Width 15.2 % (11.5-14.5); White Blood Cell (WBC) Count 11.2 thou/uL (4.8-10.8)
[2022-02-17 05:18] LABS: ALT (SGPT) Less than 7 U/L (8-55); AST (SGOT) 16 U/L (5-34); Albumin 3.1 g/dL (3.4-4.8); Alkaline Phosphatase 180 U/L (40-110); Anion Gap 20 mmol/L (10-20); BUN (Urea Nitrogen) 21 mg/dL (9.8-20.1); Bilirubin, Total 0.4 mg/dL (0.2-1.2); Calc. Creatinine Clearance 10 mL/min (70-130); Carbon Dioxide 22 mmol/L (23-31); Chloride 95 mmol/L (98-107); Estimated GFR 9; Globulin 3.5 g/dL (2.4-3.5); Glucose 154 mg/dL (83-110); Potassium 4.5 mmol/L (3.5-5.1); Protein, Total 6.6 g/dL (5.8-8.1); Sodium 132 mmol/L (136-145)
[2022-02-17] MEDS: Levothyroxine Sodium 25 MCG TAB PO SCH (06:18)
[2022-02-17] MEDS: HYDROcodone/Acetaminophen 10/325 mg Tablet PO SCH (11:06)
[2022-02-17] MEDS: Atorvastatin Calcium 20 MG TAB PO SCH (11:07)
[2022-02-17] MEDS: Amlodipine 5 MG TAB PO SCH (11:07)
[2022-02-17] MEDS: Amiodarone 200 MG TAB PO SCH (11:07)
[2022-02-17] MEDS: Aspirin Chewable 81 MG TAB PO SCH (11:07)
[2022-02-17] MEDS: Sevelamer Carbonate 800 MG TAB PO SCH ×3 (11:07→16:11)
[2022-02-17] MEDS: Clopidogrel Bisulfate 75 MG TAB PO SCH (11:07)
[2022-02-17] MEDS: Ferrous Sulfate 325 MG TAB PO SCH ×2 (11:08→22:06)
[2022-02-17] MEDS: Saccharomyces boulardii 250 MG CAP PO SCH (11:08)
[2022-02-17] MEDS: Famotidine 20 MG TAB PO SCH (11:08)
[2022-02-17] MEDS: Heparin 5,000 UNITS/ML VIAL SC SCH ×2 (11:08→22:06)
[2022-02-17] MEDS: guaiFENesin ER 600 MG TAB PO SCH ×2 (11:08→22:06)
[2022-02-17] MEDS: Escitalopram Oxalate 10 mg Tablet PO SCH (11:08)
[2022-02-17] MEDS ORDERED: OLANZapine 5 MG TAB PO SCH (15:30)
[2022-02-17] MEDS: Cephalexin 250 MG CAP PO SCH (22:05)
[2022-02-17] MEDS: diphenhydrAMINE 25 MG CAP PO SCH (22:06)
[2022-02-18] MEDS: Vancomycin HCl 125 MG/5 ML (BATCHED) UDCUP PO SCH ×5 (00:07→17:44)
[2022-02-18] MEDS: Nitroglycerin 2% Ointment 1 INCH/1 GM Packet TOP SCH ×3 (04:26→17:43)
[2022-02-18] MEDS: traMADol HCl 50 MG TAB PO PRN (04:27)
[2022-02-18 04:50] LABS: #Basophils 0.1 thou/uL (0.0-0.2); #Eosinphils 0.1 thou/uL (0.0-0.7); #Lymphocytes 1.2 thou/uL (1.20-3.40); #Monocytes 0.8 thou/uL (0.11-0.59); #Neutrophils 7.7 thou/uL (1.40-6.50); %Basophils 0.8 % (0.0-1.0); %Eosinophils 1.1 % (0.0-10.0); %Lymphocytes 12.1 % (21.0-51.0); %Monocytes 8.1 % (0.0-10.0); %Neutrophils 77.9 % (42.0-75.0); Mean Corpuscular HGB CONC 32.3 g/dL (32.0-36.0); Platelet Count 325 thou/uL (130-400); RBC Distribution Width 14.9 % (11.5-14.5); Red Blood Cell (RBC) Count 3.33 mill/uL (4.20-5.40); White Blood Cell (WBC) Count 9.9 thou/uL (4.8-10.8)
[2022-02-18 05:15] LABS: ALT (SGPT) Less than 7 U/L (8-55); AST (SGOT) 10 U/L (5-34); Albumin 3.2 g/dL (3.4-4.8); Alkaline Phosphatase 186 U/L (40-110); Anion Gap 20 mmol/L (10-20); BUN (Urea Nitrogen) 25 mg/dL (9.8-20.1); Bilirubin, Total 0.5 mg/dL (0.2-1.2); Calc. Creatinine Clearance 9 mL/min (70-130); Calcium 9.1 mg/dL (7.8-10.44); Carbon Dioxide 23 mmol/L (23-31); Chloride 93 mmol/L (98-107); Estimated GFR 7; Globulin 3.5 g/dL (2.4-3.5); Glucose 76 mg/dL (83-110); Potassium 4.3 mmol/L (3.5-5.1); Protein, Total 6.7 g/dL (5.8-8.1); Sodium 132 mmol/L (136-145)
[2022-02-18] MEDS: Levothyroxine Sodium 25 MCG TAB PO SCH (06:13)
[2022-02-18] MEDS: Ferrous Sulfate 325 MG TAB PO SCH ×2 (10:39→21:34)
[2022-02-18] MEDS: HYDROcodone/Acetaminophen 10/325 mg Tablet PO SCH (10:40)
[2022-02-18] MEDS: Saccharomyces boulardii 250 MG CAP PO SCH (10:40)
[2022-02-18] MEDS: Clopidogrel Bisulfate 75 MG TAB PO SCH (10:40)
[2022-02-18] MEDS: guaiFENesin ER 600 MG TAB PO SCH ×2 (10:41→21:34)
[2022-02-18] MEDS: Atorvastatin Calcium 20 MG TAB PO SCH (10:41)
[2022-02-18] MEDS: Aspirin Chewable 81 MG TAB PO SCH (10:41)
[2022-02-18] MEDS: Amiodarone 200 MG TAB PO SCH (10:41)
[2022-02-18] MEDS: Sevelamer Carbonate 800 MG TAB PO SCH ×3 (10:41→17:43)
[2022-02-18] MEDS: Famotidine 20 MG TAB PO SCH (10:41)
[2022-02-18] MEDS: Heparin 5,000 UNITS/ML VIAL SC SCH ×2 (10:42→21:35)
[2022-02-18] MEDS: Escitalopram Oxalate 10 mg Tablet PO SCH (10:42)
[2022-02-18] MEDS: Amlodipine 5 MG TAB PO SCH (10:42)
[2022-02-18] MEDS ORDERED: Heparin 10,000 UNITS/ 10 ML VIAL ONE (12:09)
[2022-02-18] MEDS ORDERED: OLANZapine 10 MG VIAL IM SCH (14:45)
[2022-02-18] MEDS: diphenhydrAMINE 25 MG CAP PO SCH (21:34)
[2022-02-18] MEDS: Cephalexin 250 MG CAP PO SCH (21:34)
[2022-02-19] MEDS: Vancomycin HCl 125 MG/5 ML (BATCHED) UDCUP PO SCH ×4 (00:14→18:29)
[2022-02-19] MEDS: Nitroglycerin 2% Ointment 1 INCH/1 GM Packet TOP SCH ×3 (02:40→18:28)
[2022-02-19 05:13] LABS: #Eosinphils 0.1 thou/uL (0.0-0.7); #Lymphocytes 0.9 thou/uL (1.20-3.40); #Monocytes 0.7 thou/uL (0.11-0.59); #Neutrophils 8.8 thou/uL (1.40-6.50); %Basophils 0.5 % (0.0-1.0); %Eosinophils 0.5 % (0.0-10.0); %Lymphocytes 8.5 % (21.0-51.0); %Monocytes 6.9 % (0.0-10.0); %Neutrophils 83.6 % (42.0-75.0); Hemoglobin 11.3 g/dL (12.0-16.0); Mean Corpuscular HGB CONC 30.7 g/dL (32.0-36.0); Mean Corpuscular Hemoglobin 31.1 pg (27.0-31.0); Mean Platelet Volume 8.2 fL (7.4-10.4); Platelet Count 393 thou/uL (130-400); RBC Distribution Width 14.9 % (11.5-14.5); Red Blood Cell (RBC) Count 3.62 mill/uL (4.20-5.40); White Blood Cell (WBC) Count 10.5 thou/uL (4.8-10.8)
[2022-02-19 05:38] LABS: Anion Gap 16 mmol/L (10-20); BUN (Urea Nitrogen) 10 mg/dL (9.8-20.1); Calc. Creatinine Clearance 16 mL/min (70-130); Carbon Dioxide 29 mmol/L (23-31); Chloride 97 mmol/L (98-107); Estimated GFR 15; Glucose 99 mg/dL (83-110); Potassium 3.9 mmol/L (3.5-5.1); Sodium 138 mmol/L (136-145)
[2022-02-19] MEDS: Levothyroxine Sodium 25 MCG TAB PO SCH (06:53)
[2022-02-19] MEDS ORDERED: OLANZapine 5 MG TAB PO SCH (09:00)
[2022-02-19] MEDS: HYDROcodone/Acetaminophen 10/325 mg Tablet PO SCH (09:20)
[2022-02-19] MEDS: Amlodipine 5 MG TAB PO SCH (09:21)
[2022-02-19] MEDS: Sevelamer Carbonate 800 MG TAB PO SCH ×3 (09:21→16:45)
[2022-02-19] MEDS: Aspirin Chewable 81 MG TAB PO SCH (09:21)
[2022-02-19] MEDS: Famotidine 20 MG TAB PO SCH (09:22)
[2022-02-19] MEDS: Clopidogrel Bisulfate 75 MG TAB PO SCH (09:22)
[2022-02-19] MEDS: guaiFENesin ER 600 MG TAB PO SCH ×2 (09:22→23:04)
[2022-02-19] MEDS: Saccharomyces boulardii 250 MG CAP PO SCH (09:22)
[2022-02-19] MEDS: Ferrous Sulfate 325 MG TAB PO SCH (09:22)
[2022-02-19] MEDS: Escitalopram Oxalate 10 mg Tablet PO SCH (09:22)
[2022-02-19] MEDS: Atorvastatin Calcium 20 MG TAB PO SCH (09:22)
[2022-02-19] MEDS: Heparin 5,000 UNITS/ML VIAL SC SCH ×2 (09:22→23:04)
[2022-02-19] MEDS: Amiodarone 200 MG TAB PO SCH (09:22)
[2022-02-19] MEDS: Cephalexin 250 MG CAP PO SCH (23:03)
[2022-02-19] MEDS: diphenhydrAMINE 25 MG CAP PO SCH (23:04)
[2022-02-19] MEDS: risperiDONE 0.25 MG TAB PO SCH (23:04)
[2022-02-20] MEDS: Nitroglycerin 2% Ointment 1 INCH/1 GM Packet TOP SCH ×3 (01:25→17:29)
[2022-02-20] MEDS: Vancomycin HCl 125 MG/5 ML (BATCHED) UDCUP PO SCH ×4 (01:25→18:11)
[2022-02-20 04:41] LABS: #Basophils 0.1 thou/uL (0.0-0.2); #Lymphocytes 0.9 thou/uL (1.20-3.40); #Monocytes 0.7 thou/uL (0.11-0.59); #Neutrophils 6.6 thou/uL (1.40-6.50); %Basophils 0.6 % (0.0-1.0); %Eosinophils 0.6 % (0.0-10.0); %Lymphocytes 10.5 % (21.0-51.0); %Monocytes 8.4 % (0.0-10.0); Hemoglobin 11.3 g/dL (12.0-16.0); Mean Corpuscular HGB CONC 30.7 g/dL (32.0-36.0); Mean Corpuscular Hemoglobin 31.1 pg (27.0-31.0); Mean Platelet Volume 9.3 fL (7.4-10.4); Platelet Count 297 thou/uL (130-400); RBC Distribution Width 14.9 % (11.5-14.5); Red Blood Cell (RBC) Count 3.63 mill/uL (4.20-5.40); White Blood Cell (WBC) Count 8.3 thou/uL (4.8-10.8)
[2022-02-20 05:04] LABS: Anion Gap 17 mmol/L (10-20); BUN (Urea Nitrogen) 6 mg/dL (9.8-20.1); Calc. Creatinine Clearance 23 mL/min (70-130); Carbon Dioxide 26 mmol/L (23-31); Chloride 99 mmol/L (98-107); Estimated GFR 24; Glucose 89 mg/dL (83-110); Potassium 4.4 mmol/L (3.5-5.1); Sodium 138 mmol/L (136-145)
[2022-02-20] MEDS: Levothyroxine Sodium 25 MCG TAB PO SCH (06:23)
[2022-02-20] MEDS: Clopidogrel Bisulfate 75 MG TAB PO SCH (09:35)
[2022-02-20] MEDS: Sevelamer Carbonate 800 MG TAB PO SCH ×3 (09:35→17:29)
[2022-02-20] MEDS: Ferrous Sulfate 325 MG TAB PO SCH ×2 (09:36→20:18)
[2022-02-20] MEDS: guaiFENesin ER 600 MG TAB PO SCH ×2 (09:36→20:18)
[2022-02-20] MEDS: Atorvastatin Calcium 20 MG TAB PO SCH (09:36)
[2022-02-20] MEDS: Famotidine 20 MG TAB PO SCH (09:36)
[2022-02-20] MEDS: Aspirin Chewable 81 MG TAB PO SCH (09:36)
[2022-02-20] MEDS: Escitalopram Oxalate 10 mg Tablet PO SCH (09:36)
[2022-02-20] MEDS: Amlodipine 5 MG TAB PO SCH (09:36)
[2022-02-20] MEDS: Amiodarone 200 MG TAB PO SCH (09:37)
[2022-02-20] MEDS: HYDROcodone/Acetaminophen 10/325 mg Tablet PO SCH (09:37)
[2022-02-20] MEDS: Saccharomyces boulardii 250 MG CAP PO SCH (09:37)
[2022-02-20] MEDS: Heparin 5,000 UNITS/ML VIAL SC SCH ×2 (09:42→20:18)
[2022-02-20] MEDS: risperiDONE 0.25 MG TAB PO SCH (20:18)
[2022-02-20] MEDS: diphenhydrAMINE 25 MG CAP PO SCH (20:18)
[2022-02-20] MEDS: traMADol HCl 50 MG TAB PO PRN (21:25)
[2022-02-21] MEDS: Vancomycin HCl 125 MG/5 ML (BATCHED) UDCUP PO SCH ×3 (00:03→14:11)
[2022-02-21] MEDS: Nitroglycerin 2% Ointment 1 INCH/1 GM Packet TOP SCH (02:42)
[2022-02-21 04:37] LABS: #Eosinphils 0.1 thou/uL (0.0-0.7); #Lymphocytes 1.2 thou/uL (1.20-3.40); #Monocytes 0.7 thou/uL (0.11-0.59); #Neutrophils 4.8 thou/uL (1.40-6.50); %Basophils 0.5 % (0.0-1.0); %Eosinophils 1.3 % (0.0-10.0); %Lymphocytes 18.1 % (21.0-51.0); %Monocytes 10.3 % (0.0-10.0); %Neutrophils 69.9 % (42.0-75.0); Hemoglobin 10.1 g/dL (12.0-16.0); Mean Corpuscular HGB CONC 30.5 g/dL (32.0-36.0); Mean Platelet Volume 8.1 fL (7.4-10.4); Platelet Count 321 thou/uL (130-400); RBC Distribution Width 14.6 % (11.5-14.5); Red Blood Cell (RBC) Count 3.25 mill/uL (4.20-5.40); White Blood Cell (WBC) Count 6.8 thou/uL (4.8-10.8)
[2022-02-21] MEDS: Levothyroxine Sodium 25 MCG TAB PO SCH (04:54)
[2022-02-21 05:02] LABS: Anion Gap 11 mmol/L (10-20); BUN (Urea Nitrogen) 12 mg/dL (9.8-20.1); Calc. Creatinine Clearance 14 mL/min (70-130); Carbon Dioxide 30 mmol/L (23-31); Chloride 98 mmol/L (98-107); Estimated GFR 14; Glucose 140 mg/dL (83-110); Potassium 4.2 mmol/L (3.5-5.1); Sodium 135 mmol/L (136-145)
[2022-02-21] MEDS: Saccharomyces boulardii 250 MG CAP PO SCH (09:10)
[2022-02-21] MEDS: Amiodarone 200 MG TAB PO SCH (09:10)
[2022-02-21] MEDS: Famotidine 20 MG TAB PO SCH (09:11)
[2022-02-21] MEDS: Clopidogrel Bisulfate 75 MG TAB PO SCH (09:11)
[2022-02-21] MEDS: Ferrous Sulfate 325 MG TAB PO SCH (09:11)
[2022-02-21] MEDS: Sevelamer Carbonate 800 MG TAB PO SCH ×3 (09:12→17:59)
[2022-02-21] MEDS: Escitalopram Oxalate 10 mg Tablet PO SCH (09:13)
[2022-02-21] MEDS: Amlodipine 5 MG TAB PO SCH (09:13)
[2022-02-21] MEDS: Atorvastatin Calcium 20 MG TAB PO SCH (09:13)
[2022-02-21] MEDS: Heparin 5,000 UNITS/ML VIAL SC SCH (09:15)
[2022-02-21] MEDS: HYDROcodone/Acetaminophen 10/325 mg Tablet PO SCH (09:16)
[2022-02-21] MEDS: guaiFENesin ER 600 MG TAB PO SCH (09:16)
[2022-02-21 11:35] VITALS: BP 145/68; TEMP 97.5
[2022-02-21] MEDS: traMADol HCl 50 MG TAB PO PRN (14:09)
[2022-02-21] MEDS: Epoetin (ESRD) 20,000 UNITS/ML SC SCH (17:58)
[2022-02-22] MEDS ORDERED: Apixaban 2.5 MG TAB PO SCH (09:00)
== END 2022-02-21 17:00 | disposition home or self-care (01) | DRG 871 ==
LOC: ERS 03:44 → ERHOLD 06:13 → 2NO 20:08
PROVIDERS: ADMIT Internal Medicine; ATTEND Internal Medicine
PROC: 5A1D70Z Performance of Urinary Filtration, Intermittent, Less than 6 Hours Per Day (ICD-10-PCS; principal; 2022-02-05)
PROC: 3E03329 Introduction of Other Anti-infective into Peripheral Vein, Percutaneous Approach (ICD-10-PCS; 2022-02-05)
PROC: 0JPW3XZ Removal of Tunneled Vascular Access Device from Lower Extremity Subcutaneous Tissue and Fascia, Percutaneous Approach (ICD-10-PCS; 2022-02-07)
DX: A41.4 Sepsis due to anaerobes (principal); G93.41 Metabolic encephalopathy; I21.4 Non-ST elevation (NSTEMI) myocardial infarction; J96.21 Acute and chronic respiratory failure with hypoxia; N18.6 End stage renal disease; A04.72 Enterocolitis due to Clostridium difficile, not specified as recurrent; I13.2 Hypertensive heart and chronic kidney disease with heart failure and with stage 5 chronic kidney disease, or end stage renal disease; E87.1 Hypo-osmolality and hyponatremia; E87.20 Acidosis, unspecified; F05 Delirium due to known physiological condition; N39.0 Urinary tract infection, site not specified; Z20.822 Contact with and (suspected) exposure to COVID-19; E03.9 Hypothyroidism, unspecified; F41.9 Anxiety disorder, unspecified; F32.A Depression, unspecified; E87.5 Hyperkalemia; G89.4 Chronic pain syndrome; D63.1 Anemia in chronic kidney disease; I48.0 Paroxysmal atrial fibrillation; E78.5 Hyperlipidemia, unspecified; I25.10 Atherosclerotic heart disease of native coronary artery without angina pectoris; E87.70 Fluid overload, unspecified; I50.9 Heart failure, unspecified; A41.81 Sepsis due to Enterococcus; A41.59 Other Gram-negative sepsis; J44.9 Chronic obstructive pulmonary disease, unspecified; Z99.2 Dependence on renal dialysis; Z28.311 Partially vaccinated for COVID-19; Z88.8 Allergy status to other drugs, medicaments and biological substances; Z88.0 Allergy status to penicillin; Z79.01 Long term (current) use of anticoagulants; Z79.890 Hormone replacement therapy; Z79.899 Other long term (current) drug therapy; Z91.199 Patient's noncompliance with other medical treatment and regimen due to unspecified reason; Z86.16 Personal history of COVID-19
CPT/HCPCS: 36415; 36416; 70450; 71045; 74177; 80048; 80053; 81001; 82553; 82805; 83605; 83630; 83735; 83880; 84100; 84484; 85025; 85027; 85610; 85730; 87040; 87077; 87086; 87186; 87324; 87340; 87449; 87493; 87505; 87811; 90935; 93005; 93010; 93306; 94640; 96374; 96375; G0257; J0692; J0696; J1644; J1815; J2001; J2060; J3370; J3490; J7611; J7620; J7999; Q4081; Q9967